=== PATIENT | male | born 1950 | race Caucasian/White ===

== ENCOUNTER 2020-04-18 18:44 | Emergency (ER) | payer MEDICARE, BC, SELFPAY ==
[2020-04-18] VITALS (7 sets, daily range): BP systolic 95–151; BP diastolic 70–97; PULSE 90–128; RESP 18–38; TEMP 36.4–36.6; O2SAT 80–100
--- NOTE | ~2020-04-18 | XR_ITS ---
EXAMINATION: XR chest 1V portable EXAM DATE: 04/18/2020 19:34 INDICATION: Shortness of breath. TECHNIQUE: Portable AP frontal chest x-ray was obtained. There is no prior study for comparison. FINDINGS: There is a moderate left-sided pneumothorax, pleural reflection has been indicated. I discu ssed this finding with Dr. Mukesh Langston MD at 04/18/2020 19:43 CDT. Evidence of underlying emphysema. There are some chronic linear right lung regions of scarring and pr obably apical bullous disease. Some left-sided atelectasis. No confluent consolidation. Pleural blunt ing, could be small pleural effusions or chronic. Cardiomediastinal silhouette is normal. There are m ild bony degenerative changes. IMPRESSION: Moderate-sized left pneumothorax. Reviewed, dictated and finalized at location A.
--- NOTE | ~2020-04-18 | XR_ITS ---
EXAMINATION: XR chest-chest tube insert/pos EXAM DATE: 04/18/2020 20:44 INDICATION: S/P Left Chest tube placement TECHNIQUE: Portable AP frontal chest x-ray was obtained. Comparison is made to prior examination from earlier same date. FINDINGS: There is been interval insertion of left-sided chest tube, with near resolution of the prev iously seen pneumothorax. Probable small amount of left-sided subpulmonic pneumothorax still identifi ed. Some apical bullous disease bilaterally. Lungs are hyperinflated and there is emphysema. No acute airspace disease. Cardiomediastinal silhouette is normal. There are no osseous abnormalities identif ied. IMPRESSION: Near resolution of left-sided pneumothorax following chest tube insertion. Reviewed, dictated and finalized at location A. IMPRESSION: Near resolution of left-sided pneumothorax following chest tube ins ertion.
--- NOTE | ~2020-04-18 | CT_ITS ---
EXAMINATION: CTA chest PE protocol EXAM DATE: 04/18/2020 22:38 INDICATION: Elevated DDimer, SOB, chest tube from pneumothorax TECHNIQUE: Spiral CTA of the chest (pulmonary arteries) was performed with 100 cc Omnipaque 350 intr avenous contrast injection. Images were acquired during the pulmonary arterial phase. Coronal maxi mum intensity projection 3D-reconstructions were created by the technologist on dedicated workstation . Axial, coronal and sagittal reformatted images were reviewed. The dose-length product (DLP) for t his examination was 175.96 mGy-cm. The exposure was tailored according to patient size (auto mA exp osure control), and iterative reconstruction (ASIR) was used as additional dose reduction technique. Correlation is made to chest x-ray same date. FINDINGS: There is a left-sided chest tube extending up along the anterior pleural reflection and the n downward along the anteromedial reflection. There is small anterobasal pneumothorax remaining, sign ificant interval reduction compared to presenting chest x-ray. There is biapical bullous disease and moderate to severe emphysema. There is mild bilateral bronchiectasis. Pulmonary arteries are well opacified and without intraluminal filling defects. There are his right upper lobe somewhat linear opacity measuring 1.3 x 0.7 cm with some punctate calcifications, appeara nce most consistent with scarring. Recommend 6 month follow-up chest x-ray. There is angular segmenta l atelectasis. There are no pleural or pericardial effusions. Tracheobronchial tree is patent. T here is no mediastinal, hilar or axillary lymphadenopathy. Heart normal in size. There is moderat e coronary arterial calcification, arterial sclerosis. Upper abdomen is unremarkable. There is tho racic spondylosis without osteoblastic or osteolytic lesions identified. IMPRESSION: 1. Small residual left anterobasal pneumothorax. Chest tube in position anteromedially. 2. Right upper lobe linear nodular opacity most likely scarring but 6 month follow-up chest CT recom mended. 3. Moderate to severe emphysema. Apical bullous disease. 4. Lingular segmental atelectasis. Reviewed, dictated and finalized at location G. IMPRESSION: 1. Small residual left anterobasal pneumothorax. Chest tube in position rhett medially. 2. Right upper lobe linear nodular opacity most likely scarring but 6 month fo llow-up chest CT recommended. 3. Moderate to severe emphysema. Apical bullous disease. 4. Lingular segmental atelectasis.
--- NOTE | 2020-04-18 18:55 | ECG_ITS ---
Measurements Intervals [place] Rate: 126 P: 51 [place]: 158 QRS: 108 QRSD: 86 T: 56 QT: 316 QTc: 458 Interpretive Statements SINUS TACHYCARDIA FREQUENT ATRIAL PREMATURE COMPLEXES RIGHT AXIS DEVIATION DELAYED PRECORDIAL R/S TRANSITION LOW QRS VOLTAGE IN PRECORDIAL LEADS BASELINE ARTIFACT- I, II, III, AVR, AVL, AVF, V1-V6 ABNORMAL ECG Electronically Signed On 04-19-2020 7:36:52 CDT by Nahun Barajas D.O.
[2020-04-18] MEDS: methylPREDNISolone SOD SUCC 125 MG VIAL IV PUSH (19:02)
--- NOTE | 2020-04-18 19:08 | ED.SOB ---
HPI - SOB/Dyspnea General Chief Complaint: Shortness of Breath/Dyspnea Stated Complaint: 69 YO male w/ known h/o COPD sec to tobaccoism here by AMB c/o 1 day h.o SOB. Denies fever. Time Seen by Provider: 04/18/20 18:55 Related Data Home Medications Medication Instructions Recorded Confirmed amlodipine 5 mg PO DAILY 04/18/20 04/18/20 budesonide-formoterol [Symbicort] 1 puff INHALATION BID 04/18/20 04/18/20 clonidine HCl 0.1 mg PO BID 04/18/20 04/18/20 lisinopril 10 mg PO DAILY 04/18/20 04/18/20 tiotropium bromide [Spiriva 1 puff INHALATION BID 04/18/20 04/18/20 Respimat] Allergies Allergy/AdvReac Type Severity Reaction Status Date / Time No Known Allergies Allergy Verified 04/18/20 21:03 Review of Systems Constitutional: Constitutional: Reports as per HPI and Reports no additional constitutional complaints Eyes: Eyes: Reports as per HPI and Reports no additional eye complaints ENT: Reports system reviewed and no additional complaints, except as documented and Reports as per HPI Cardiovascular: Cardiovascular: Reports as per HPI and Reports no additional cardiovascular complaints Respiratory: Respiratory: Reports dyspnea Gastrointestinal: Gastrointestinal: Reports as per HPI and Reports no additional gastrointestinal complaints Genitourinary: Genitourinary: Reports no additional male genitourinary complaints and Reports as per HPI Musculoskeletal: Musculoskeletal: Reports no additional musculoskeletal complaints and Reports as per HPI Integumentary/Breasts: Skin/Breast: Reports system reviewed and no additional complaints, except as docu and Reports as per HPI Neurologic: Reports system reviewed and no additional complaints, except as documented and Reports as per HPI Psychiatric: Psychiatric: Reports no additional psychiatric complaints and Reports as per HPI Endocrine: Endocrine: Reports no additional endocrine complaints and Reports as per HPI Hematologic/Lymphatic: Hematologic/Lymphatic: Reports no additional hematologic/lymphatic complaints and Reports as per HPI Allergic/Immunologic: Allergic/Immunologic: Reports no additional allergic/immunologic complaints and Reports as per HPI [facility] Past Medical History Medical History COPD (chronic obstructive pulmonary disease) HTN (hypertension) Exam Const: General: alert and ill appearing Orientation/consciousness: patient oriented x3 HENMT: Head: normal to inspection Eyes: Conjunctivae: conjunctivae normal Pupils: Equal, round and reactive pupils present Neck: Neck: normal visual inspection and no lymphadenopathy Chest: Chest palpation & inspection: normal inspection of the chest Resp: Effort & Inspection: labored Auscultation: clear to auscultation bilaterally and diminished lung sounds Cardio: Rate: regular rate Rhythm: regular rhythm GI: Inspection: non-distended GI Palp: Yes Soft to palpation, No Tenderness to palpation present (GI), No Guarding due to palpation present (GI) and No Rigid due to palpation Percussion: Yes normal to percussion Auscultation: normal bowel sounds : General: Yes no CVA tenderness Male General Exam: Yes normal external exam Testes: Testes normal Back/Spine/Pelvis: Back: no CVA tenderness Skin: General skin exam: normal color Neuro: General: patient oriented x3, moves all extremities, no meningeal signs, no focal motor deficits and CN's II-XI intact bilaterally Cranial nerves: Yes Nystagmus not present Speech: normal speech Extrem: General: normal to inspection Psych: Mental Status: mental status grossly normal Course Course Emergency Course: D/W Hospitalist Dr Ramirez at [facility] who accepts patient but [facility] no [facility] beds available. Called Sunny Olson/Xi Chambers (Hospitalist) who agrees with w/u and need for transfer. he accepts patient. Will call back w/ a Bed. Vital Signs Vital signs: Vital Signs
[2020-04-18 19:30] LABS: Device BIPAP; Modified Allen's Test Pass; Oxygen Content ABG 18.6 %vol (16.0-22.0); Oxygen Saturation ABG 93.3 % (95-97); Oxyhemoglobin 91.9 % (94-100); PCO2 ABG 43.7 mmHg (35-45); Site Drawn RIGHT RADIAL; Total Hemoglobin 14.4 g/dL; pH ABG 7.32 (7.35-7.45)
[2020-04-18 19:31] LABS: Basophils Absolute Auto 0.06 K/mm3 (0.00-0.10); Basophils Percent Auto 0.4 % (0.0-1.0); Eosinophils Absolute Auto 0.01 K/mm3 (0.02-0.50); Eosinophils Percent Auto 0.1 % (1.0-6.0); Hematocrit 44.7 % (37.0-46.0); Hemoglobin 14.1 g/dL (12.4-15.3); Immature Granulocyte Percent A 0.6 % (0.0-0.0); Lymphocytes Absolute Auto 0.94 K/mm3 (1.10-4.50); Lymphocytes Percent Auto 5.8 % (18.0-42.0); Mean Corpuscular HGB Conc 31.5 g/dL (32.0-36.0); Mean Corpuscular Hemoglobin 29.9 pg (27.0-31.0); Mean Corpuscular Volume 94.7 fL (78.0-102.0); Mean Platelet Volume 8.6 fl (8.7-11.0); Monocytes Absolute Auto 0.79 K/mm3 (0.10-0.90); Monocytes Percent Auto 4.8 % (2.0-11.0); Neutrophils Absolute Auto 14.4 K/mm3 (1.7-7.2); Neutrophils Percent Auto 88.3 % (50.0-70.0); Platelet Count Result 374 K/mm3 (150-420); Red Blood Count 4.72 M/mm3 (4.70-6.10); Red Cell Distribution Width 13.7 % (11.6-14.4); White Blood Count 16.3 K/mm3 (4.8-10.8)
[2020-04-18 19:46] LABS: Expiratory Pressure 6 cmH2O; Inspiratory Pressure 12 cmH2O
[2020-04-18 19:49] LABS: Partial Thromboplastin Time 33.5 SEC (22.3-31.6); Prothrombin Time 10.7 Seconds (9.64-11.0)
[2020-04-18 19:55] LABS: Alanine Aminotransferase 15 U/L (16-63); Albumin Level 3.5 g/dL (3.4-5.0); Alkaline Phosphatase 89 U/L (46-116); Anion Gap 10 mmol/L (8-16); Aspartate Amino Transferase 18 U/L (15-37); Bilirubin,Total 1.2 mg/dL (0.00-1.00); Blood Urea Nitrogen 30 mg/dL (7-18); Carbon Dioxide 25 mmol/L (21-32); Chloride 102 mmol/L (98-108); Estimated Glomerular Filt Rate 58; Glucose 178 mg/dL (70-99); Osmolality Calculated 294 mOsm/kg (285-295); Potassium 4.1 mmol/L (3.5-5.1); Sodium 137 mmol/L (136-145); Total Protein 7.5 g/dL (6.4-8.2)
[2020-04-18 19:56] LABS: Amphetamine Screen Urine Negative (Negative); Barbiturate Screen Urine Negative (Negative); Benzodiazepines Screen Urine Negative (Negative); Cannabinoid Screen Urine Negative (Negative); Cocaine Screen Urine Negative (Negative); Methadone Screen Urine Negative (Negative); Opiate Screen Urine Negative (Negative); Phencyclidine Screen Urine Negative (Negative)
[2020-04-18 20:01] LABS: Magnesium 2.1 mg/dL (1.8-2.4)
[2020-04-18 20:01] LABS: Troponin I 2.16 ng/mL (0.00-0.056)
[2020-04-18 20:02] LABS: BNP 343 pg/mL (0-100)
[2020-04-18 20:03] LABS: Influenza Control Valid (Valid)
--- NOTE | 2020-04-18 20:33 | PC.NURSE ---
CHEST TUBE PLACEMENT CONSENT SIGNED PER DR DALLAS - 24 FR THORACIC CATHETER PLACED WITH PLEURA VAC SET AT LOW BUBBLE - PT TOLERATED PROCEDURE WELL - SPOKE WITH MURRAY AND BLANCA(DAUGHTERS) TO DECIDE WHERE THEY WOULD LIKE THEIR DAD SENT TO. PT REMAINS ALERT AND STATES THAT HE DOES FEEL BETTER SINCE PROCEDURE.
--- NOTE | 2020-04-18 20:40 | PC.NURSE ---
[facility] CALLED FOR POSSIBLE TRANSFER - THEY CAN PLACE US ON A WAITING LIST BUT THEY ARE OUT OF [place]
--- NOTE | 2020-04-18 20:50 | PC.NURSE ---
[facility] CALLED FOR POSSIBLE TRANSFER - BLANCA [phone] (DAUGHTER) AGREEABLE TO TRANSFER
--- NOTE | 2020-04-18 21:51 | PC.NURSE ---
CALL PLACED TO [facility] FOR POSSIBLE TRANSPORT REQUESTED BY BLANCA
[2020-04-18] MEDS: SODIUM CHLORIDE 0.9% IV 1,000 ML 150 ML IV CONT (22:00)
--- NOTE | 2020-04-18 22:00 | PC.NURSE ---
DR GENTILE CALLED FROM [facility]
--- NOTE | 2020-04-18 22:03 | PC.NURSE ---
DR NARAYAN CALLS BACK FROM [facility]
--- NOTE | 2020-04-18 22:12 | PC.NURSE ---
[facility] NOT TAKING ANY COVID TEST PENDING PATIENTS AT THIS TIME
--- NOTE | 2020-04-18 22:15 | PC.NURSE ---
[facility] TO CALL HOSPITALIST AT THIS TIME
[2020-04-18 23:24] LABS: Lactic Acid Reflex 3.2 mmol/L (0.4-2.0)
[2020-04-18] MEDS: SODIUM CHLORIDE 0.9% IV 1,000 ML 999 ML IV CONT (23:30)
--- NOTE | 2020-04-19 00:25 | PC.NURSE ---
ambulance here, states their policy must have a nurse with a new chest tube so unable transfer until nurse can be arranged.
[2020-04-19 01:12] VITALS: BP 107/70; PULSE 91; RESP 18; TEMP 36.6; O2SAT 99
[2020-04-19 01:48] LABS: Reflex Lactic Acid Yes or No No Lactic Reflex
[2020-04-21 11:16] LABS: SARS-CoV-2 RNA PCR Negative
== END 2020-04-19 01:14 | disposition short-term general hospital (02) ==
PROVIDERS: Emergency Provider Family Medicine
DX: J44.1 Chronic obstructive pulmonary disease with (acute) exacerbation (principal); J93.11 Primary spontaneous pneumothorax; R79.9 Abnormal finding of blood chemistry, unspecified; I10 Essential (primary) hypertension; Z87.891 Personal history of nicotine dependence; Z20.828 Contact with and (suspected) exposure to other viral communicable diseases; Z79.899 Other long term (current) drug therapy
CPT/HCPCS: 32551; 36415; 36600; 71045; 71275; 80053; 80307; 82805; 83605; 83735; 83880; 84484; 85025; 85380; 85610; 85730; 87081; 87635; 87804; 87880; 93005; 94002; 96361; 96365; 96375; 99283; 99291; C9803; J2543; J2930; J7030; Q9965; U0003

== ENCOUNTER 2020-04-19 02:00 | Inpatient (IN) | payer MEDICARE, BC, SELFPAY ==
[2020-04-19] VITALS (18 sets, daily range): BP systolic 100–122; BP diastolic 82–99; PULSE 85–125; RESP 15–31; TEMP 36.4–37.7; O2SAT 93–100; BMI 15.4
--- NOTE | 2020-04-19 | ECHO_ITS ---
Patient Info Name: Gilmar Neff Age: 70 years : 1950 Gender: Male Ht: 68 in Wt: 101 lbs BSA: 1.46 m2 HR: 112 bpm BP: 118 / 91 mmHg Heart Rhythm: Sinus Rhythm Technical Quality: Good Exam Date: 04/19/2020 12:36 PM Exam Location: [facility] Pulmonary Exam Room: ICU7 Patient Status: Inpatient Admit Date: 04/19/2020 Staff Ordering Physician: Jonny Edwards MD Market Development Manager: Jenny Gordon RCS Attending Provider: Saran Chambers MD Exam Type: CA echo doppler color flow Study Info Indications - STEMI S/P CATH Complete two-dimensional, color flow and Doppler transthoracic echocardiogram is performed. Summary 1. Complete two-dimensional, color flow and Doppler transthoracic echocardiogram is performed. 2. The left ventricle has normal size and thickness. The mid and distal ventricle (all segments: inferior, septal, posterior, anterior and lateral) are akinetic as is the apex, in a Tako-Tsubo- like fashion. The base of the ventricle is hyperdynamic. Normal diastolic function. The measured ejection fraction is 23% by the Biplane method and visually it appears to be 20-25%. Global longitudinal strain is -3%, consistent with severe impairment of systolic function. 3. The right ventricle is hyperdynamic. 4. Left atrial chamber dimension is borderline enlarged. 5. There is mild tricuspid valve regurgitation. 6. Mild pulmonary hypertension, estimated pulmonary arterial systolic pressure is 44 mmHg. 7. Normal sinus rhythm. Left Ventricle Left ventricular chamber dimension is normal. Left ventricular systolic function is severely reduced, estimated at 20-25%. There is no increased left ventricular wall thickness. Left ventricular septal wall motion is normal. The left ventricular diastolic function is normal. Global longitudinal strain is severely elevated at 3 %. Right Ventricle Right ventricular chamber dimension is normal. Right ventricular systolic function is normal. Left Atria Left atrial chamber dimension is borderline enlarged. Right Atria Right atrial chamber dimension is normal. Aortic Valve The aortic valve is trileaflet. There is no aortic valve sclerosis. There is no aortic valve stenosis. There is no aortic valve regurgitation. Pulmonic Valve The pulmonic valve is normal. There is no pulmonic valve stenosis. There is trace pulmonic regurgitation. Mitral Valve The mitral valve has normal leaflets. There is no mitral valve stenosis. There is trace mitral valve regurgitation. Tricuspid Valve The tricuspid valve leaflets are normal. There is no significant tricuspid valve stenosis. There is mild tricuspid valve regurgitation. Mild pulmonary hypertension, estimated pulmonary arterial systolic pressure is 44 mmHg. Pericardium/Pleural The pericardium appears normal. There is no pericardial effusion. Inferior Vena Cava Normal inferior vena cava with >50% collapse upon inspiration consistent with Empty right atrial pressure, 10 mmHg. Aorta The aortic root size at the sinus of Valsalva is normal. The prox ascending aorta size is normal. Left Ventricular Outflow Tract Name Value Normal LVOT 2D LVOT Diameter 2.0 cm L
--- NOTE | ~2020-04-19 | XR_ITS ---
XR chest 1V portable DATE: 04/22/2020 13:09 INDICATION: Small left pneumothorax TECHNIQUE: Portable AP chest on 04/22/2020 at 1245 hours COMPARISON: 04/22/2020 portable AP chest at 0524 hours FINDINGS: There is bullous emphysema. No pneumothorax is evident. The left chest tube is unchanged in position. Normal heart size. Diffuse osteopenia. IMPRESSION: Left thoracostomy tube; no apparent pneumothorax Bullous emphysema Reviewed, dictated and finalized at location A.
--- NOTE | ~2020-04-19 | XR_ITS ---
EXAMINATION: XR chest 1V portable DATE: 04/20/2020 05:45 INDICATION: Respiratory failure and pneumothorax post chest tube placement TECHNIQUE: frontal view of the chest was obtained. COMPARISON: Chest radiograph dated 04/19/2020 FINDINGS: Severe apical predominant emphysema. A left-sided chest tube has been withdrawn by approximately 10 c m with distal tip now projecting over the aortic arch and proximal side port projecting over the cent ral left lung. No pneumothorax. Pulmonary vascular congestion with slight increase in interstitial pa ttern suggesting developing pulmonary edema. Architectural distortion with central spiculated opacity at the right upper lung zone for which six-month follow-up was recommended on prior CT report. The c ardiomediastinal silhouette is normal. IMPRESSION: 1. Left chest tube has been withdrawn approximately 10 cm remains in acceptable position. No pneumoth orax. 2. Severe emphysema. 3. Pulmonary vascular congestion with suggestion of developing pulmonary edema. 4. Spiculated right upper lobe nodule for which six-month follow-up chest CT was recommended. Reviewed, dictated and finalized at location A. IMPRESSION: 1. Left chest tube has been withdrawn approximately 10 cm remains in acceptable position. No pneumothorax. 2. Severe emphysema. 3. Pulmonary vascular congestion with suggestion of developing pulmonary edema. 4. Spiculated right upper lobe nodule for which six-month follow-up chest CT wa s recommended.
--- NOTE | ~2020-04-19 | XR_ITS ---
XR chest 1V portable DATE: 04/25/2020 05:49 INDICATION: Left pneumothorax TECHNIQUE: Portable AP chest on 04/25/2020 at 0539 hours COMPARISON: 04/24/2020 portable AP chest at 1610 hours FINDINGS: There is slight left apical pneumothorax. There is minimal subcutaneous emphysema of the le ft chest wall. Bullous emphysema is again noted. Normal heart size. Minimal infiltrate or atelectasis is suggested in the lower lung zones. IMPRESSION: Slight left apical pneumothorax Reviewed, dictated and finalized at location A.
--- NOTE | ~2020-04-19 | XR_ITS ---
EXAMINATION: XR chest 1V portable DATE: 04/24/2020 16:24 INDICATION: Hypoxia. Respiratory distress. Recent left pneumothorax. TECHNIQUE: frontal view of the chest was obtained. COMPARISON: Chest radiograph dated 04/24/2020 at 5:06 AM FINDINGS: Upper expansion of lungs with increased lucency and architectural distortion at the upper lung zones and bullous changes at the apices consistent with emphysema. No pneumothorax. Increased interstitial pattern in the bilateral mid and lower lung zones consistent with mild pulmonary edema. No pleural ef fusion. The cardiomediastinal silhouette is normal. Small amount of chest wall gas projecting over th e left axilla likely related to a recent prior chest tube. IMPRESSION: 1. Severe emphysema. No pneumothorax. 2. Increased interstitial pattern in the bilateral mid and lower lung zones consistent with mild emph ysema. Reviewed, dictated and finalized at location B. IMPRESSION: 1. Severe emphysema. No pneumothorax. 2. Increased interstitial pattern in the bilateral mid and lower lung zones con sistent with mild emphysema.
--- NOTE | ~2020-04-19 | US_ITS ---
EXAMINATION: US right upper quadrant DATE: 04/24/2020 11:14 INDICATION: Abnormal liver function tests. TECHNIQUE: Multiple grayscale and Doppler ultrasound images of the abdomen were obtained. COMPARISON: None FINDINGS: The visualized portions of the head, body, and tail of the pancreas are normal. The liver i s normal without focal lesion. No liver surface nodularity. There is normal flow in main portal vein. The gallbladder is normal in size. No gallstones or gallbladder wall thickening. There was no sonogr aphic Vilchis sign. The common duct is normal and measures 4 mm. IMPRESSION: 1. Normal right upper quadrant ultrasound. Reviewed, dictated and finalized at location A.
--- NOTE | ~2020-04-19 | XR_ITS ---
XR chest 1V portable DATE: 04/24/2020 05:32 INDICATION: Removal of left thoracostomy tube TECHNIQUE: Portable AP chest on 04/24/2020 at 0506 hours COMPARISON: 04/15/2020 portable AP chest at 1400 hours FINDINGS: There is interval removal of left thoracostomy tube. There is mild subcutaneous emphysema o f the left chest wall. Approximately 2 mm left apical pneumothorax is suggested. Bullous emphysema is again noted. No pulmonary consolidation or pleural effusion. Heart size is jacquie l. IMPRESSION: Removal of left chest tube; slight left apical pneumothorax and mild subcutaneous emphyse ma left chest wall Prominent bullous emphysema Reviewed, dictated and finalized at location A. IMPRESSION: Removal of left chest tube; slight left apical pneumothorax and mil d subcutaneous emphysema left chest wall Prominent bullous emphysema
--- NOTE | ~2020-04-19 | XR_ITS ---
XR chest 1V portable DATE: 04/21/2020 05:51 INDICATION: Respiratory failure. Pneumothorax. TECHNIQUE: Portable AP chest on 04/21/2020 at 0530 hours COMPARISON: 04/20/2020 portable AP chest at 0530 hours FINDINGS: Severe bilateral emphysema is noted with bullous change particularly at the apices. Left thoracostomy tube is unchanged in position. There is slight left apical pneumothorax is suggeste d. No active infiltrate or consolidation, pleural effusion or pulmonary vascular congestion or pneumotho rax is noted. Heart size is within normal range. No hilar or mediastinal enlargement. Diffuse osteopenia. IMPRESSION: Left thoracostomy tube; very slight left apical pneumothorax is suggested Bullous emphysema Reviewed, dictated and finalized at location A. IMPRESSION: Left thoracostomy tube; very slight left apical pneumothorax is sug gested Bullous emphysema
--- NOTE | ~2020-04-19 | XR_ITS ---
XR chest 1V portable DATE: 04/23/2020 08:08 INDICATION: Left pneumothorax TECHNIQUE: Portable AP chest, 2 views, on 04/23/2020 at 0758 hours COMPARISON: 04/22/2020 portable AP chest at 1245 hours FINDINGS: Left thoracostomy tube is again noted. No pneumothorax is evident. Bilateral hyperinflation consistent with COPD, including bullae in the upper lung zones. Normal heart size. No pulmonary consolidation is noted. IMPRESSION: Left thoracostomy tube; no apparent left pneumothorax Reviewed, dictated and finalized at location A.
--- NOTE | ~2020-04-19 | XR_ITS ---
EXAMINATION: XR chest 1V portable DATE: 04/23/2020 14:05 INDICATION: Left pneumothorax post clamping of a left chest tube. TECHNIQUE: frontal view of the chest was obtained. COMPARISON: Chest radiograph dated 04/23/2020 at 7:58 AM FINDINGS: Again seen is hyperexpansion of lungs with increased lucency and architectural distortion most promin ent at the upper lung zones consistent with severe emphysema. Left chest tube in unchanged position w ith small amount of adjacent chest wall gas. No pneumothorax. No focal airspace opacities, pulmonary edema or pleural effusion. The cardiomediastinal silhouette is normal. IMPRESSION: 1. Unchanged left chest tube. No pneumothorax. 2. Severe emphysema. Reviewed, dictated and finalized at location B.
--- NOTE | ~2020-04-19 | XR_ITS ---
EXAMINATION: XR chest 1V portable DATE: 04/19/2020 09:44 INDICATION: Left chest tube for pneumothorax TECHNIQUE: frontal view of the chest was obtained. COMPARISON: Chest radiograph dated 04/18/2020 FINDINGS: Hyperexpansion of lungs with increased lucency and architectural distortion consistent with severe em physema. No interval change in position of a left chest tube which projects across the left mid to up per lung with distal tip extending caudally along side the anterior mediastinum. No discernible resid ual pneumothorax. No pulmonary edema or pleural effusion. The cardiomediastinal silhouette is normal. IMPRESSION: 1. Unchanged left chest tube with no discernible residual left pneumothorax. 2. Severe emphysema. Reviewed, dictated and finalized at location A.
--- NOTE | ~2020-04-19 | XR_ITS ---
XR chest 1V portable DATE: 04/22/2020 05:41 INDICATION: Left pneumothorax. Respiratory failure. TECHNIQUE: Portable AP chest on 04/22/2020 at 0524 hours COMPARISON: 04/21/2020 portable AP chest at 0530 hours FINDINGS: Left thoracostomy tube is again noted. Probable small left apical pneumothorax is again sug gested. There is bilateral hyperinflation with bullous change involving the apices. Heart size appears within normal range. There is aortic ectasia and unfolding. Diffuse osteopenia. IMPRESSION: Probable small left apical pneumothorax Reviewed, dictated and finalized at location A.
--- NOTE | 2020-04-19 02:54 | ADMGEN ---
This patient, Gilmar Neff, was admitted to Intensive Care Unit-7 at 0150. Patient/family oriented to hospital policies and general routines including ID bracelet, bed and alarms, visiting hours, pain management, procedures, bathroom and other care routines, personal items, smoking policy, room service/diet, and visiting hours. Information on how to activate the Rapid Response Team has been discussed. Patient/Family are encouraged to report perceived risks to care and to ask questions if they do not understand what they are told or what they should do.
--- NOTE | 2020-04-19 03:36 | PM.IMHP ---
H&P: HPI History of Present Illness Date/Time: 04/19/20 03:36 Chief complaint: acute respiratory failure, PMX, Elev Trop Narrative: This is a 70 year old male with known COPD and hypertension who presented to [facility] with complaint of shortness of breath that started since he woke up yesterday. The patient denies any significant chest pain and states that his shortness of breath was not exertional or pleuritic in nature. He also denies any significant coughing,wheezing, fevers, or chills. The patient has an extensive tobacco history and currently is smoking a half a pack of cigarettes daily. He denies any previous history of coronary artery disease. He also denies any trauma. The patient was evaluated emergency room and found to have a spontaneous left pneumothorax on chest x-ray. The patient was placed on 4 L of oxygen which improved his saturations from the 80s up to above 95%. A left-sided chest tube was placed in the ER. Routine labs demonstrated an elevated troponin of 2.1. He was also swabbed for altamirano virus. The patient was transferred to our hospital for further care. On my encounter with the patient he denies any left-sided chest pain at this time. Review of Systems Review of Systems: All systems reviewed & are unremarkable except as noted in HPI and below PMFSH Past Medical History Medical History Acute systolic CHF (congestive heart failure) COPD (chronic obstructive pulmonary disease) (Unknown) HTN (hypertension) Right upper lobe pulmonary nodule Family History Family History Sibling Chronic obstructive pulmonary disease Social History Social History Smoking packs per day: 0.5 Smoking cigarettes per day: 10.0 Smoking status: Current every day smoker Tobacco type: cigarettes Alcohol intake: current Drinks per week: 7 Substance use: never Gender identity (if verbalized by the patient): Male Spiritual care concerns: No Comments Past surgical history is unremarkable. Meds Home Medications and Allergies Home Medications Medication Instructions Recorded Confirmed Type amlodipine 5 mg PO DAILY 04/18/20 04/19/20 History budesonide-formoterol [Symbicort] 1 puff INHALATION BID 04/18/20 04/19/20 History clonidine HCl 0.1 mg PO BID 04/18/20 04/19/20 History lisinopril 10 mg PO DAILY 04/18/20 04/19/20 History tiotropium bromide [Spiriva 1 puff INHALATION BID 04/18/20 04/19/20 History Respimat] Allergies Allergy/AdvReac Type Severity Reaction Status Date / Time No Known Allergies Allergy Verified 04/18/20 21:03 Vital Signs Vital Signs - 24 hr 04/19/20 02:09 04/19/20 03:17 Temperature 37.7 C H Pulse Rate 86 91 Respiratory Rate 25 H Blood Pressure 119/89 Pulse Oximetry 100 Exam Const: General: cooperative, healthy appearing, no acute distress, alert and awake Nutritional Appearance: well nourished Orientation/consciousness: patient oriented x3 HENMT: Head: normal to inspection General nose exam: Normal external nose present Face and sinus: normal facial exam Mouth: Yes Normal oral and palatal mucosa present and Yes oropharynx normal Eyes: Pupils: Equal, round and reactive pupils present EOM: EOMs intact bilaterally Neck: Neck: supple and no JVD Thyroid: thyroid normal Lymphatic: lymphadenopathy not noted Resp: Effort & Inspection: normal respiratory effort and other (left sided chest tube in place) Auscultation: clear to auscultation bilaterally Cardio: Rate: regular rate Rhythm: regular rhythm Heart sounds: no murmurs GI: Inspection: normal to inspection Auscultation: normal bowel sounds Skin: General skin exam: normal color and no rashes or lesions noted Neuro: General: patient oriented x3 Cranial nerves: Yes CN's II-XII intact bilaterally and Yes Equal, round and reacti
--- NOTE | 2020-04-19 03:39 | ECG_ITS ---
Measurements Intervals [place] Rate: 86 P: 78 [place]: 160 QRS: 63 QRSD: 78 T: 66 QT: 370 QTc: 445 Interpretive Statements SINUS RHYTHM LOW QRS VOLTAGE IN LIMB LEADS BORDERLINE R WAVE PROGRESSION, ANTERIOR LEADS ANTERLATERAL ST ELEVATION MYOCARDIAL INJURY- ACUTE BASELINE ARTIFACT- I, II ,III, AVL, V2, V4 ABNORMAL ECG Electronically Signed On 04-22-2020 12:08:10 CDT by Nahun Barajas D.O.
[2020-04-19 04:12] LABS: Basophils Percent Auto 0.1 % (0.2-1.2); Hemoglobin 13.8 g/dL (14.0-18.0); Immature Granulocyte Absolute 0.08 K/mm3 (0.00-0.031); Immature Granulocyte Percent A 0.6 % (0-0.5); Lymphocytes Absolute Auto 0.88 K/mm3 (0.9-3.2); Lymphocytes Percent Auto 6.4 % (18.3-44.2); Mean Corpuscular HGB Conc 32.1 g/dl (32-36); Mean Corpuscular Hemoglobin 30.1 pg (26-34); Mean Corpuscular Volume 93.9 fl (80-100); Mean Platelet Volume 8.7 fl (7.4-10.4); Monocytes Absolute Auto 0.4 K/mm3 (0.1-0.6); Monocytes Percent Auto 2.7 % (2.6-8.5); Neutrophils Absolute Auto 12.5 K/mm3 (1.3-6.7); Neutrophils Percent Auto 90.2 % (45.5-73.1); Platelet Count Result 302 k/mm3 (150-375); Red Blood Count 4.58 M/mm3 (4.6-6.20); Red Cell Distribution Width 13.8 % (11.5-14.5); White Blood Count 13.8 K/mm3 (4.5-10.0)
[2020-04-19] MEDS: ASPIRIN 325 MG TABLET PO (04:31)
[2020-04-19 04:45] LABS: Cholesterol 130 mg/dL (0-200); HDL Direct 57 mg/dL; Triglycerides 64 mg/dL (<150)
[2020-04-19 04:49] LABS: Anion Gap 13 mmol/L (8-16); Blood Urea Nitrogen 28 mg/dL (9-20); Calcium 8.8 mg/dL (8.4-10.2); Carbon Dioxide 20 mmol/L (22-30); Chloride 105 mmol/L (98-107); Estimated CRCL calculation 45 ml/min; Estimated Glomerular Filt Rate > 60; Glucose 109 mg/dL (75-110); Potassium 4.4 mmol/L (3.4-5.0); Sodium 138 mmol/L (137-145)
[2020-04-19 04:55] LABS: LDL Cholesterol Direct 63 mg/dL
--- NOTE | 2020-04-19 05:06 | ECG_ITS ---
Measurements Intervals [place] Rate: 86 P: 82 [place]: 144 QRS: 66 QRSD: 79 T: 74 QT: 386 QTc: 464 Interpretive Statements SINUS RHYTHM LOW QRS VOLTAGE IN LIMB LEADS BORDERLINE R WAVE PROGRESSION, ANTERIOR LEADS MINIMAL Q WAVES- INFERIOR LEADS ANTEROLATERAL ST ELEVATION MYOCARDIAL INJURY- ACUTE ABNORMAL ECG Electronically Signed On 04-22-2020 12:11:29 CDT by Nahun Barajas D.O.
[2020-04-19 05:26] LABS: INR 1.2
[2020-04-19 05:27] LABS: Partial Thromboplastin Time 43.4 SECONDS (22.3-36.8)
--- NOTE | 2020-04-19 06:37 | PC.NURSE ---
Upon physician review, STEMI alert via [facility] called at 0518 after EKG indicated STEMI. pathology laboratory director team transported patient to slab inspector at 0610.
--- NOTE | 2020-04-19 06:59 | PM.CNCAR ---
Assessment and Plan Additional Plan STEMI ant wall, s/p LHC with subtotal occlusion of LAD with ILIR 1 flow, likely culprit lesion, very trotious and calcfiied long lesion, s/p PTCA and restored ILIR 3 flow but not amenable for stent. will consider single vessel ABRAMS to LAD as best option vs high risk PCI. cont on ASA, Plavix, statin and BP control with amlodipine, ACEI and metoprolol, TTE. History of Present Illness History of Present Illness Consult date/time: 04/19/20 06:59 Consult reason: shortness of breath Reason For Visit: acute respiratory failure, PMX, Elev Trop Narrative: 70 patient with HX of COPD and HTN presented to outside hospital with acute SOB, and found to have pneumothorax and chest tube placed with improvement in his SOB. EKG was done and revealed concerning ST elevation in ant leads and trop was found to be significantly elevated. Patient also mentioned prior Hx of stroke and on blood thinner that he doesn't know name. Review of Systems Review of Systems: All systems reviewed & are unremarkable except as noted in HPI and below PMFSH Past Medical History Medical History COPD (chronic obstructive pulmonary disease) HTN (hypertension) Family History Family History Sibling Chronic obstructive pulmonary disease Social History Social History Smoking packs per day: 0.5 Smoking cigarettes per day: 10.0 Smoking status: Current every day smoker Tobacco type: cigarettes Alcohol intake: current Drinks per week: 7 Substance use: never Gender identity (if verbalized by the patient): Male Spiritual care concerns: No Meds Home Medications and Allergies Home Medications Medication Instructions Recorded Confirmed Type amlodipine 5 mg PO DAILY 04/18/20 04/19/20 History budesonide-formoterol [Symbicort] 1 puff INHALATION BID 04/18/20 04/19/20 History clonidine HCl 0.1 mg PO BID 04/18/20 04/19/20 History lisinopril 10 mg PO DAILY 04/18/20 04/19/20 History tiotropium bromide [Spiriva 1 puff INHALATION BID 10/23/20 10/24/20 History Respimat] Allergies Allergy/AdvReac Type Severity Reaction Status Date / Time No Known Allergies Allergy Verified 04/18/20 21:03 Vital Signs Vital Signs - 24 hr 04/19/20 02:09 04/19/20 03:17 04/19/20 04:00 Temperature 37.7 C H Pulse Rate 86 91 85 Respiratory Rate 25 H 20 Blood Pressure 119/89 118/91 H Pulse Oximetry 100 99 04/19/20 05:59 Temperature Pulse Rate 90 Respiratory Rate Blood Pressure Pulse Oximetry Exam Const: General: comfortable and no acute distress Other: Able to lie flat HENMT: General nose exam: Normal nares present and no epistaxis Mouth: Yes moist mucous membranes Eyes: Sclera: sclerae normal Pupils: Equal, round and reactive pupils present Neck: Neck: supple and no JVD Carotids: no bruits Chest: Chest palpation & inspection: normal inspection of the chest (left side chest tube) Resp: Auscultation: clear to auscultation bilaterally and lung sounds not diminished Other: No chest wall tenderness Cardio: Rate: regular rate Rhythm: regular rhythm Heart sounds: no gallops, no murmurs and no rubs GI: GI Palp: Yes Soft to palpation and No Tenderness to palpation present (GI) Auscultation: normal bowel sounds Skin: General skin exam: normal color, rashes and/or lesions noted and no erythema Other: Warm Neuro: Cranial nerves: Yes Equal, round and reactive pupils present Speech: normal speech Other: No obvious focal deficit or facial asymmetry Extrem: General: no edema Other: Normal capillary refills Intact distal pulses. Results Labs and Meds Result diagrams: 04/19/20 04:01 04/19/20 04:01 Lab results: Cardiac Enzymes 04/19/20 Range/Units 04:01 Troponin I 2.150 H* (0.000-0.034) ng/mL Co
--- NOTE | 2020-04-19 07:05 | WPDCARDPROC ---
Cardiac Cath Procedure Note Date of procedure:: 04/19/20 Performing physician:: Jonny Edwards MD Assessment and Plan Additional Plan INDICATION: 1. STEMI HISTORY Patient presented with acute sever SOB s/p chest tube placement, EKG showed STEMIa nd rising trop PROCEDURES 1. Coronary angiogram 2. LHC 3. 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 Access site prepped and draped in sterile fashion. Moderate sedation given with versed and fentanyl and tolerated well, see nurses note for doses Access obtained with modified Seldinger technique with no difficulty. Coronary angiogram was recorded using JL4 and JR4 catheter in different angels LHC was done with JR4 catheter HEMODYNAMIC FINDINGS Aorta: 100/70 LVEDP 18 ANGIOGRAPHIC FINDINGS 1. Left main: normal, free of obstructive disease, gives LAD and LCX 2. LAD: Long trortious vessel that wraps around apex. LAD gives one intermediate size diagonal. Mid LAD has long 90% occlusion/subtotal occlusion with ILIR II flow distally. 3. LCX: Non dominant tortious calcified vessel that gives one large OM with no obstructive disease 4. RCA: Dominant vessel gives rPDA. RCA is calcified tortious vessel and RCA and its branches free of obstructive disease PCI DETAILS Pre intervention Lesion: acute subtotal occlusion of mid LAD, culprit lesion of STEMI, class C, calcified, ILIR II Guide catheter: XB 3.5 Anticoagulation: Heparin to target ACT > 250 sec Antiplatelet therapy: ASA and Ticagrelor given Guide wire: samurai used to cross to distal vessel Balloon dilation was done with boiler washer 1.2 * 12 mm balloon at 12 DARWIN, then Emerge 2.0 * 15 and 2.5 * 15 mm balloon. because of tortuosity, calcification and length of lesion, no attempt was done for stent and will consider ABRAMS to LAD Post intervention: residual stenosis 40% and ILIR 3 flow established COMPLICATION: None Estimated blood loss: 30 ml patient tolerated procedure well, asymptomatic at end of procedure, awake, intact pulses and following commands CONCLUSION Acute subtotal occlusion of mid LAD Culprit lesion of STEMI S/P Primary PTCA with emerge 2.5 * 15 mm balloon and restored ILIR 3 flow RECOMMENDATION DAPT for at least one year Consult cardiac surgery for ABRAMS to LAD.
[2020-04-19 07:07] LABS: Activated Clotting Time 219 sec (74-137)
[2020-04-19] MEDS: ATORVASTATIN 40 MG TABLET 80 MG PO (09:08)
[2020-04-19] MEDS: CLOPIDOGREL BISULFATE 300 MG TABLET PO (09:08)
[2020-04-19] MEDS: SODIUM CHLORIDE 0.9% IV 1,000 ML 125 ML IV CONT (09:12)
--- NOTE | 2020-04-19 09:28 | ECG_ITS ---
Measurements Intervals Jackhorn Rate: 90 P: 80 MD: 165 QRS: 47 QRSD: 93 T: 72 QT: 381 QTc: 468 Interpretive Statements SINUS RHYTHM VENTRICULAR PREMATURE COMPLEX LOW QRS VOLTAGE IN LIMB LEADS BORDERLINE R WAVE PROGRESSION, ANTERIOR LEADS ST ELEVATION IN ANTEROLATERAL LEADS- CONSIDER ACUTE INJURY BASELINE ARTIFACT- I, II, III, AVR, AVL, AVF, V4-V6 ABNORMAL ECG Electronically Signed On 04-22-2020 12:09:10 CDT by Nahun Barajas D.O.
[2020-04-19] MEDS: lisinopriL 10 MG TABLET PO (09:35)
[2020-04-19] MEDS: amLODIPine BESYLATE 5 MG TABLET PO (09:35)
[2020-04-19] MEDS: ASPIRIN 81 MG ENTERIC TABLET PO (09:35)
--- NOTE | 2020-04-19 12:17 | WPDCNINT ---
Assessment and Plan Assessment and plan (1) STEMI (ST elevation myocardial infarction): Qualifiers: Involved coronary artery: unspecified coronary artery Qualified Code(s): I21.3 - ST elevation (STEMI) myocardial infarction of unspecified site Code(s): I21.3 - ST elevation (STEMI) myocardial infarction of unspecified site Status: Acute Assessment and Plan: She was evaluated by cardiology and was taken to cardiac cardiac cath technician. LAD was found to be occluded. PTSA Was performed but stent could not be placed because of the vessel being very tortuous and calcified. Continue to trend troponin and serial EKG. Continue to monitor on telemetry. Continue dual antiplatelet therapy with aspirin and Plavix. Continue statin. Resume her home regimen of amlodipine and lisinopril. Will add low-dose metoprolol. Will hold off her clonidine. (2) Tobacco dependence: Code(s): F17.200 - Nicotine dependence, unspecified, uncomplicated Status: Chronic Assessment and Plan: Encouraged her to stop smoking. (3) Suspected 2019 novel coronavirus infection: Code(s): Z20.828 - Contact with and (suspected) exposure to other viral communicable diseases Status: Acute Assessment and Plan: Follow COVID testing sent from [facility]. She will remain in contact and droplet precaution until she is ruled out. I have very low suspicion for COVID-19 infection. (4) Primary spontaneous pneumothorax: Code(s): J93.11 - Primary spontaneous pneumothorax Status: Acute Assessment and Plan: Continue chest tube with intermittent wall suction Chest tube management as per surgery service which has been consulted. Chest x-ray on the daily basis. (5) COPD (chronic obstructive pulmonary disease): Code(s): J44.9 - Chronic obstructive pulmonary disease, unspecified Status: Acute Assessment and Plan: Continue bronchodilator with levo albuterol and Atrovent nebulization. I will continue his Symbicort and Spiriva. Additional Plan DVT prophylaxis with subcu heparin GI prophylaxis not indicated cardiac diet critical care time spent 34 minutes Due to a high probability of clinically significant, life threatening deterioration, the patient required my highest level of preparedness to intervene emergently and I personally spent this critical care time directly and personally managing the patient. This critical care time included obtaining a history; examining the patient; pulse oximetry; ordering and review of studies; arranging urgent treatment with development of a management plan; evaluation of patient's response to treatment; frequent reassessment; and discussions with other providers. It was exclusive of separately billable procedures and treating other patients and teaching time. Please see Assessment and Plan section and the rest of the note for further information on patient assessment and treatment. Occup Therapist Consult Note Consult date: 04/19/20 Time Seen: 10:35 HPI: Gilmar Neff is a 70 year old male COPD, significant smoking history and hypertension who presented to [facility] with complaints of shortness of breath. She was evaluated in the emergency department and a spontaneous left-sided a pneumothorax was encountered. A chest tube was placed. he kg there was suggestive of possible ST-elevation ID. She did have some significant troponin leak. She was transferred over here and was evaluated by corrections sergeant who took her to cardiac cardiac cath technician. She was found to have occlusion of LAD with PTSA done. Stent was not placed because of the vessel being very tortuous and calcified. She was admitted to the ICU for further care. She denied have any significant symptoms of chest pain or shortness of breath to myself. She denied have any cough fever chills. She has not been exposed to any patient with confirmed or suspected COVID19
[2020-04-19] MEDS: HYDROcodone/acetaminophen (*CRX) 5-325 MG TABLET 1 TAB PO (15:19)
--- NOTE | 2020-04-19 16:13 | PM.IMPN ---
Progress Note: A&P Assessment and Plan (1) Acute respiratory failure: Qualifiers: Respiratory failure complication: unspecified whether with hypoxia or hypercapnia Qualified Code(s): J96.00 - Acute respiratory failure, unspecified whether with hypoxia or hypercapnia Code(s): J96.00 - Acute respiratory failure, unspecified whether with hypoxia or hypercapnia Status: Acute Assessment and Plan: Appears to be secondary to acute pneumothorax. Continue oxygen supplementation and wean off as tolerated. Continue chest tube for pneumothorax and continue general surgery recommendations. To place to water suction today (2) Primary spontaneous pneumothorax: Code(s): J93.11 - Primary spontaneous pneumothorax Status: Acute Assessment and Plan: Likely related COPD secondary to chronic tobacco abuse. Chest tube is in place. General Surgery to manage the patient's pneumothorax. (3) STEMI (ST elevation myocardial infarction): Qualifiers: Involved coronary artery: unspecified coronary artery Qualified Code(s): I21.3 - ST elevation (STEMI) myocardial infarction of unspecified site Code(s): I21.3 - ST elevation (STEMI) myocardial infarction of unspecified site Status: Acute Assessment and Plan: EKG demonstrates ST segment elevation inferior/lateral leads. ASA given. We will anticoagulate w/ IV heparin. Trend troponin. Cardiology the patient to laboratory animal facility supervisor and found long tortuous subtotally occluded LAD. Lesion was angioplastied but not stented due to tortuosity. Beta-maryann, dual platelet therapy, VIK-inhibitor, and statin (4) COPD exacerbation: Code(s): J44.1 - Chronic obstructive pulmonary disease with (acute) exacerbation Status: Acute Assessment and Plan: Xopenex bronchodilator. Continue oxygen supplementation. (5) HTN (hypertension): Qualifiers: Hypertension type: unspecified Qualified Code(s): I10 - Essential (primary) hypertension Code(s): I10 - Essential (primary) hypertension Status: Chronic Assessment and Plan: Monitor blood pressure. Add beta-maryann and continue to hold clonidine (6) Suspected 2019 novel coronavirus infection: Code(s): Z20.828 - Contact with and (suspected) exposure to other viral communicable diseases Status: Acute Assessment and Plan: Patient has been swabbed for COVID-19. Continue droplet isolation. Supportive care. (7) Tobacco dependence: Code(s): F17.200 - Nicotine dependence, unspecified, uncomplicated Status: Chronic Assessment and Plan: Dr. Castle counseled the patient regarding tobacco cessation for 4 minutes. He does not desire a nicotine patch. Subjective Date/time seen: 04/19/20 16:13 Interval history: Date of visit 04/19. 70-year-old male with COPD and hypertension presented to [facility] with increasing shortness of breath found to have a spontaneous left pneumothorax. Chest tube was placed and troponin was elevated to and transferred here for evaluation. EKG shows some ST elevation inferior and laterally and patient was taken to laboratory animal facility supervisor where a long tortuous subtotal occlusion of the LAD was found and angioplasty. Presently has no complaints shortness of breath or chest pain Exam Narrative: Exam Narrative: Blood pressure 110/90 pulse is 92 saturating 97% on room air afebrile Pupils equal reactive light sclera anicteric Lungs clear chest tube of left anterior chest wall CV regular rate rhythm Abdomen soft nontender Extremities without edema distal pulses are 2+ Neuro alert no focal deficits Objective Data Vital Signs Vital Signs: Vital Signs - 24 hr 04/19/20 02:09 04/19/20 03:17 04/19/20 04:00 Temperature 37.7 C H Pulse Rate 86 91 85 Respiratory Rate 25 H 20 Blood Pressure 119/89 118/91 H Pulse Oximetry 100 99 04/19/20 05:59 04/19/20 07:18 04/19/20 07:48 Temperature 37.2 C Pulse Rate 90 90 90 R
--- NOTE | 2020-04-19 16:47 | PM.CNGS ---
Assessment and Plan Assessment and plan (1) Primary spontaneous pneumothorax: Onset Date: ~04/19/20 Code(s): J93.11 - Primary spontaneous pneumothorax Status: Acute Assessment and Plan: this was the main reason further consultation to surgery. We will follow him for his chest tube. Because the ways chest tube was inserted and seems to be too far in [place] removed it detention so there is still 12 cm at the skin within the patient. Think the chest x-ray will be better tomorrow. He has good breath sounds on both sides this time. He does have chest pain and he feels like he is breathing okay. Will repeat chest x-ray in leave his chest tube to water seal since there is no air leak at this time. Repeat chest x-ray in the morning on water seal. (2) STEMI (ST elevation myocardial infarction): Qualifiers: Involved coronary artery: unspecified coronary artery Qualified Code(s): I21.3 - ST elevation (STEMI) myocardial infarction of unspecified site Code(s): I21.3 - ST elevation (STEMI) myocardial infarction of unspecified site Status: Acute (3) Tobacco dependence: Code(s): F17.200 - Nicotine dependence, unspecified, uncomplicated Status: Chronic (4) COPD exacerbation: Code(s): J44.1 - Chronic obstructive pulmonary disease with (acute) exacerbation Status: Acute (5) HTN (hypertension): Qualifiers: Hypertension type: unspecified Qualified Code(s): I10 - Essential (primary) hypertension Code(s): I10 - Essential (primary) hypertension Status: Chronic (6) Elevated troponin: Code(s): R77.8 - Other specified abnormalities of plasma proteins Status: Acute History of Present Illness Consult details Consult date: 04/19/20 Reason for consult: other ( Management of chest tube and left pneumothorax) Requesting physician: Saran Chambers MD Narrative: Rosy is a 70-year-old white male with COPD and hypertension who presented to an [facility] ([facility]) with increasing shortness of breath and was found to have a spontaneous left pneumothorax. denies any recent falls or chest injury. He has not been working on regular basis. 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 A left sided Chest tube was placed and hsi serumtroponin was also found to be elevated and so he was transferred here for further evaluation. EKG shows some ST elevation inferior and laterally and patient was taken to label drier where a long tortuous subtotal occlusion of the LAD was found and angioplasty. Presently has no complaints shortness of breath or chest pain. Reviewing the patient's chest x-ray today appears the chest tube is going in and somewhat kinked and then going back down along the mediastinum. Therefore I decided to pull it back some today. This was accomplished by cutting 1 of the 2 stitches holding it and then taping at nicely to him so that would come further out. Patient tolerated the maneuver without difficulty. The pneumothorax a left has completely resolved with the chest tube placement on today's chest x-ray. Review of Systems Constitutional: Constitutional: Reports as per HPI and Denies headache(s) Eyes: Eyes: Denies loss of vision and Denies eye pain ENT: Reports Normal hearing present, Denies change in voice, Denies dizziness and Denies headache(s) Cardiovascular: Cardiovascular: Denies chest pain and Denies dyspnea Respiratory: Respiratory: Denies dyspnea and Denies wheezing Comments: At the most patient was a 2 pack-a-day smoker when he was young. He cut back on his smoking about 5 or 6 years ago. When he quit he was smoking about half pack a day. Genitourinary: Comments: patient has a Ji catheter in place with good urine output. Musculoskeletal: Musculoskeletal: Denies back pain and Denies arthralgias Integumentary/Breasts: Comments: Well tanned. Stay patient states he masses around outside a lot. Neurologic: Reports Normal hearing
[2020-04-19] MEDS: METOPROLOL TARTRATE INJ 5 MG/5 ML VIAL IV PUSH (19:27)
[2020-04-19] MEDS: METOPROLOL TARTRATE 25 MG TABLET PO (21:14)
[2020-04-20] VITALS (21 sets, daily range): BP systolic 105–117; BP diastolic 77–99; PULSE 94–112; RESP 24–48; TEMP 36.2–36.6; O2SAT 93–100
[2020-04-20 05:28] LABS: Alveolar/Arterial O2 Gradient 58.6 mmHg; Base Excess ABG -4.5 mEq/l (+/-2.0); Carboxyhemoglobin 0.3 % THb (0-2.0); Device ROOM AIR; Fractional Inspired Oxygen 21 %; HCO3 ABG 18.6 mEq/l (22.0-26.0); Methemoglobin ABG 0.3 %THb (0-1.5); Oxygen Content ABG 17.4 %vol (16.0-22.0); Oxyhemoglobin 86.9 % THb (90.0-100.0); PCO2 ABG 29.6 mmHg (35.0-45.0); PO2 ABG 55.7 mmHg (80.0-100.0); PO2 FiO2 Ratio Arterial Blood 2.65 %; Reduced Hemoglobin 12.5 %THb (0-5.0); Site Drawn RIGHT BRACHIAL; Total Hemoglobin 14.3 g/dL (12.0-18.0); pH ABG 7.417 (7.350-7.450)
[2020-04-20 05:46] LABS: Hemoglobin 13.1 g/dL (14.0-18.0); Mean Corpuscular HGB Conc 33.6 g/dl (32-36); Mean Corpuscular Hemoglobin 30.3 pg (26-34); Mean Corpuscular Volume 90.3 fl (80-100); Platelet Count Result 335 k/mm3 (150-375); Red Blood Count 4.32 M/mm3 (4.6-6.20); Red Cell Distribution Width 13.8 % (11.5-14.5); White Blood Count 20.9 K/mm3 (4.5-10.0)
[2020-04-20 05:59] LABS: Anion Gap 11 mmol/L (8-16); Blood Urea Nitrogen 52 mg/dL (9-20); Carbon Dioxide 20 mmol/L (22-30); Chloride 109 mmol/L (98-107); Estimated CRCL calculation 183 ml/min; Estimated Glomerular Filt Rate 60; Glucose 134 mg/dL (75-110); Potassium 4.5 mmol/L (3.4-5.0); Sodium 140 mmol/L (137-145)
--- NOTE | 2020-04-20 06:58 | PC.NURSE ---
Shift Report: Pt started shift as alert and oriented, as night went on pt became more tachypneic and impulsive, pulling tubes and wires off. Denied feeling SOB or uncomfortable, Pt attempted to get out of bed multiple times. Chest tube checked each time and intact. Last time pt tried to get out of bed, Chest tube still intact, but noticing some serosanguineous drainage seeping through dressing. Pt reoriented multiple times. Dr. Chambers notified and ABG ordered. Pt was not placed to water seal per MD to nurse communication. Pt was tachypneic throughout the night in 40s, and with increased confusion, RN did not feel that the patient could tolerate it at this time.
[2020-04-20] MEDS: SPIRONOLACTONE 25 MG TABLET PO (07:52)
[2020-04-20] MEDS: CLOPIDOGREL BISULFATE 75 MG TABLET PO (07:52)
[2020-04-20] MEDS: ATORVASTATIN 40 MG TABLET 80 MG PO (07:53)
[2020-04-20] MEDS: lisinopriL 10 MG TABLET PO (07:53)
[2020-04-20] MEDS: METOPROLOL TARTRATE 25 MG TABLET PO (07:53)
[2020-04-20] MEDS: ASPIRIN 81 MG ENTERIC TABLET PO (07:53)
[2020-04-20] MEDS: LORazepam INJ (*CRX) 2 MG/ML VIAL 0.5 MG IV PUSH ×2 (08:37→08:56)
[2020-04-20] MEDS: THIAMINE HCL 200 MG/2 ML VIAL 100 MG IV PUSH (08:55)
[2020-04-20] MEDS: FUROSEMIDE INJ 40 MG/4 ML VIAL 20 MG IV PUSH ×2 (09:10→15:03)
[2020-04-20] MEDS: methylPREDNISolone SOD SUCC 40 MG VIAL IV PUSH ×2 (09:11→20:59)
[2020-04-20 11:05] LABS: Alveolar/Arterial O2 Gradient 95.2 mmHg; Base Excess ABG -3.6 mEq/l (+/-2.0); Device NASAL CANNULA; Fractional Inspired Oxygen 28 %; HCO3 ABG 19.3 mEq/l (22.0-26.0); Oxygen Content ABG 18.5 %vol (16.0-22.0); Oxygen Saturation ABG 94.8 % (95.0-100.0); Oxyhemoglobin 92.5 % THb (90.0-100.0); PCO2 ABG 29.2 mmHg (35.0-45.0); Site Drawn LEFT BRACHIAL; Total Hemoglobin 14.2 g/dL (12.0-18.0); pH ABG 7.437 (7.350-7.450)
--- NOTE | 2020-04-20 11:58 | PM.PNGS ---
Progress Note: A&P Assessment and Plan (1) Pneumothorax on left: Onset Date: ~07/19/19 Code(s): J93.9 - Pneumothorax, unspecified Status: Acute Assessment and Plan: Patient has chest tube in place. It was withdrawn some yesterday because it was relief RN. Looks good on chest x-ray today and there is no pneumothorax. Patient however seems to be undergoing some withdrawals from possible alcohol she use/abuse. Therefore, after discussion with his stereoplotter operator will wait at least another day before considering removal of the chest tube. There is some chance patient may end up needing BiPAP or intubation. (2) Tobacco dependence: Code(s): F17.200 - Nicotine dependence, unspecified, uncomplicated Status: Chronic (3) COPD (chronic obstructive pulmonary disease): Onset Date: Unknown Code(s): J44.9 - Chronic obstructive pulmonary disease, unspecified Status: Acute Assessment and Plan: Dental Chairside Assistant indicates patient has now been started on some steroids for his wheezing and extubation of COPD. Additional Plan Discussed with stereoplotter operator. Because the patient seems to be going through some withdrawals and is not mentally with it at the moment. Will leave the chest tube to water seal in Pleur-Evac. Will repeat chest x-ray tomorrow and if patient doing well may consider removal of chest tube tomorrow. Time Spent With Patient Time with patient: less than 15 minutes Subjective Subjective Date/Time Seen: 04/20/20 11:58 Patient seen in ICU bed 7. He is less responsive today. Denies shortness of breath at this time. Review of Systems Review of Systems: ROS unobtainable: Yes unobtainable due to medical condition and unobtainable due to mental status Exam Const: General: anxious Nutritional Appearance: underweight Orientation/consciousness: patient oriented x3 Limitations: altered mental status Other: may be going through some withdrawal from alcohol use/abuse. HENMT: Mouth: Yes moist mucous membranes Neck: Neck: normal visual inspection Chest: Chest palpation & inspection: normal inspection of the chest Other: I re-examined area of chest tube it seems to be nicely secured with dressing and tape. There is no bubbling across with deep breath or cough. (No air leak). Resp: Effort & Inspection: normal respiratory effort Auscultation: wheezes ( mild bilateral expiratory wheezing.) Cardio: Jugular venous distension: no JVD Rate: regular rate and tachycardic Rhythm: regular rhythm GI: Inspection: normal to inspection GI Palp: No abdominal tenderness and No Hernia present Auscultation: normal bowel sounds Rectal Exam: deferred Urinary Catheter: Urinary Catheter: urine clear Neuro: General: moves all extremities Extrem: General: normal exam except as noted, no clubbing, cyanosis or edema and no calf tenderness Psych: Appearance: disheveled Mental Status: other ( patient only wakes up with stimulation and occasionally answersyes/no. ) Speech and movement: Normal speech and movement present Affect: normal affect Thought content: Yes Normal thought content present and Yes Hallucination(s) present Insight: Limited insight present (Psych) Judgement: Limited judgement present (Psych) Objective Data Vital Signs Vital Signs: Vital Signs - 24 hr 04/19/20 12:00 04/19/20 14:00 04/19/20 16:00 Temperature 36.6 C 36.5 C Pulse Rate 99 124 H 124 H Respiratory Rate 25 H 25 H 19 Blood Pressure 108/93 H 108/96 H 119/96 H Pulse Oximetry 94 93 93 04/19/20 18:00 04/19/20 19:27 04/19/20 20:00 Temperature 36.4 C Pulse Rate 118 H 125 H 99 Respiratory Rate 21 H 25 H Blood Pressure 116/92 H 100/82 Pulse Oximetry 96 94 04/19/20 21:14 04/19/20 22:00 04/20/20 00:00 Temperature 36.6 C Pulse Rate 104 H 101 H 102 H Respiratory Rate 31 H 35 H Blood Pressure 106/89 105/77 Pulse Oximetry 96 95 04/20/20 02:00 04/20/20 04:00 04/20/20 06:00 Temperature 3
--- NOTE | 2020-04-20 12:20 | ECG_ITS ---
Measurements Intervals [place] Rate: 109 P: 75 [place]: 177 QRS: 93 QRSD: 78 T: 180 QT: 356 QTc: 480 Interpretive Statements SINUS TACHYCARDIA ATRIAL PREMATURE COMPLEXES RIGHT AXIS DEVIATION LOW QRS VOLTAGE IN LIMB LEADS CANNOT RULE OUT SEPTAL INFARCT, AGE INDETERMINATE ST-T WAVE ABNORMALITY IN ANTEROLATERAL LEADS- CONSIDER ISCHEMIA BASELINE ARTIFACT- I, II, III, AVR, AVL, AVF, V1-V6 ABNORMAL ECG Electronically Signed On 04-22-2020 12:09:24 CDT by Nahun Barajas D.O.
--- NOTE | 2020-04-20 13:19 | PM.PNCARD ---
Progress Note: A&P Assessment and Plan (1) STEMI (ST elevation myocardial infarction): Qualifiers: Involved coronary artery: unspecified coronary artery Qualified Code(s): I21.3 - ST elevation (STEMI) myocardial infarction of unspecified site Code(s): I21.3 - ST elevation (STEMI) myocardial infarction of unspecified site Status: Acute Assessment and Plan: patient suffered an acute [place] Tuesday morning, atypical presentation. Mid Left anterior descending angioplasty with resultant good flow, but the LAD could not be easily stented. Plan for eventual ABRAMS to the Left anterior descending although stenting is still an option. Continue aspirin, Plavix, statin. (2) Acute systolic CHF (congestive heart failure): Code(s): I50.21 - Acute systolic (congestive) heart failure Status: Acute Assessment and Plan: Has developed acute CHF, not surprising in view of the severe left ventricular dysfunction and ischemic cardiomyopathy, EF 20-25%. Hopefully most of this will be stunned myocardium since the troponin elevation was modest and he is not Q'd out extensively laterally on his EKG. Repeat EKG ordered for today. Continue supportive care. Will continue metoprolol, lisinopril, and I added spironolactone yesterday. DC amlodipine to give us room to work with his blood pressure. Continue diuresis although unfortunately his BUN has climbed, probably from poor cardiac output. (3) COPD (chronic obstructive pulmonary disease): Onset Date: Unknown Code(s): J44.9 - Chronic obstructive pulmonary disease, unspecified Status: Acute Assessment and Plan: Patient has severe COPD with blebs. (4) Pneumothorax on left: Onset Date: ~07/19/19 Code(s): J93.9 - Pneumothorax, unspecified Status: Acute Assessment and Plan: Spontaneous pneumo, status post chest tube (5) Confusion: Code(s): R41.0 - Disorientation, unspecified Status: Acute Assessment and Plan: possible alcohol withdrawal. (6) Right upper lobe pulmonary nodule: Code(s): R91.1 - Solitary pulmonary nodule Status: Acute Assessment and Plan: Spiculated right upper lobe nodule noted on chest x-ray which will need to be evaluated at a later date Subjective Date/time seen: 04/20/20 13:19 Follow-up for acute [place] new line patient had an atypical presentation, presenting with a pneumothorax at [facility] and receiving a chest tube, then transferred to [facility]. Though he had no c/o chest discomfort, His EKG showed some atypical anterolateral ST elevation and his troponin was 2 so he was taken to the maintenance shop laborer early Tuesday morning. It is subtotally occluded mid Left anterior descending which Dr. Edwards angioplastied but the vessel was tortuous and calcified and was not amenable to stent. Pt had ILIR grade 3 flow at the completion of the procedure and the recommendation was to eventually have a ABRAMS to the Left anterior descending as the best option. Echo shows severe left ventricular dysfunction with akinesis of the distal 2/3 of the ventricle (the Left anterior descending was a wrap-around vessel supplying the distal inferior wall ). EF 20-25%. Date of service: 04/20/2020 . The chest tube was adjusted yesterday by Dr. Doss. Overnight the patient became restless and tachypneic as well as confused and hallucinating. There was some concern there may be alcohol withdrawal, although his daughter denies any history of heavy drinking. He settled down after some Ativan. His oxygen requirements have gone up and he is now on 4 L. He also has gone into some congestive heart failure and was given some Lasix this morning. he has
[2020-04-20] MEDS: IPRATROPIUM BR 0.02% INH SOLN 0.5 MG/2.5 ML VIAL INHALATION ×2 (14:44→20:32)
[2020-04-20] MEDS: ALBUTEROL SULFATE NEB 2.5 MG/0.5 ML INH INHALATION ×2 (14:45→20:32)
--- NOTE | 2020-04-20 14:55 | PM.IMPN ---
Progress Note: A&P Assessment and Plan (1) Acute respiratory failure: Qualifiers: Respiratory failure complication: unspecified whether with hypoxia or hypercapnia Qualified Code(s): J96.00 - Acute respiratory failure, unspecified whether with hypoxia or hypercapnia Code(s): J96.00 - Acute respiratory failure, unspecified whether with hypoxia or hypercapnia Status: Acute Assessment and Plan: Appears to be secondary to acute pneumothorax and severe COPD. Continue oxygen supplementation and wean off as tolerated. Continue chest tube for pneumothorax and continue general surgery recommendations. (2) Primary spontaneous pneumothorax: Onset Date: ~04/19/20 Code(s): J93.11 - Primary spontaneous pneumothorax Status: Inactive Assessment and Plan: Likely related COPD secondary to chronic tobacco abuse. Chest tube is in place. General Surgery to manage the patient's pneumothorax. (3) STEMI (ST elevation myocardial infarction): Qualifiers: Involved coronary artery: unspecified coronary artery Qualified Code(s): I21.3 - ST elevation (STEMI) myocardial infarction of unspecified site Code(s): I21.3 - ST elevation (STEMI) myocardial infarction of unspecified site Status: Acute Assessment and Plan: EKG demonstrates ST segment elevation inferior/lateral leads.. Cardiology took the patient to laborer high density press and found long tortuous subtotally occluded LAD. Lesion was angioplastied but not stented due to tortuosity. Beta-maryann, dual platelet therapy, VIK-inhibitor, and statin (4) COPD exacerbation: Code(s): J44.1 - Chronic obstructive pulmonary disease with (acute) exacerbation Status: Inactive Assessment and Plan: Xopenex bronchodilator. Continue oxygen supplementation. steroids added today 04/20 (5) HTN (hypertension): Qualifiers: Hypertension type: unspecified Qualified Code(s): I10 - Essential (primary) hypertension Code(s): I10 - Essential (primary) hypertension Status: Chronic Assessment and Plan: Monitor blood pressure. Added beta-maryann 04/19 and continue to hold clonidine (6) Suspected 2019 novel coronavirus infection: Code(s): Z20.828 - Contact with and (suspected) exposure to other viral communicable diseases Status: Acute Assessment and Plan: Patient has been swabbed for COVID-19. Continue droplet isolation. Supportive care. (7) Tobacco dependence: Code(s): F17.200 - Nicotine dependence, unspecified, uncomplicated Status: Chronic Assessment and Plan: Dr. Castle counseled the patient regarding tobacco cessation for 4 minutes. He does not desire a nicotine patch. (8) Acute systolic CHF (congestive heart failure): Code(s): I50.21 - Acute systolic (congestive) heart failure Status: Acute Assessment and Plan: Ejection fraction only 25% with echo and catheterization. Lungs appear clear but with extent of his COPD may not auscultate many findings. Chest x-ray may be some pulmonary vascular redistribution but looks more like difference in technique with lesser penetration on today's film. Lasix has been given and BUN and creatinine are already higher, if more failure would expect BUN and creatinine to fall 04/21 with addition of the diuretic continue beta-maryann and VIK-inhibitor with the spironolactone Subjective Date/time seen: 04/20/20 14:55 Interval history: Date of visit 04/20. 70-year-old male with COPD and hypertension presented to [facility] with increasing shortness of breath found to have a spontaneous left pneumothorax. Chest tube was placed and troponin was elevated too and transferred here for evaluation. EKG showed some ST elevation inferior and laterally and patient was taken to laborer high density press where a long tortuous subtotal occlusion of the LAD was found and angioplasty. Presently has no complaints shortness of breath or chest pain
[2020-04-21] VITALS (29 sets, daily range): BP systolic 88–103; BP diastolic 59–87; PULSE 85–119; RESP 18–30; TEMP 36.6–37.1; O2SAT 92–100; BMI 16.4
[2020-04-21] MEDS: IPRATROPIUM BR 0.02% INH SOLN 0.5 MG/2.5 ML VIAL INHALATION ×4 (02:04→20:23)
[2020-04-21] MEDS: ALBUTEROL SULFATE NEB 2.5 MG/0.5 ML INH INHALATION ×4 (02:05→20:23)
[2020-04-21] MEDS: METOPROLOL TARTRATE INJ 5 MG/5 ML VIAL IV PUSH ×2 (02:23→06:17)
[2020-04-21] MEDS: methylPREDNISolone SOD SUCC 40 MG VIAL IV PUSH ×3 (05:04→21:21)
[2020-04-21 05:30] LABS: Basophils Percent Auto 0.1 % (0.2-1.2); Hematocrit 45.1 % (42.0-52.0); Hemoglobin 14.7 g/dL (14.0-18.0); Immature Granulocyte Absolute 0.12 K/mm3 (0.00-0.031); Immature Granulocyte Percent A 0.5 % (0-0.5); Lymphocytes Absolute Auto 0.94 K/mm3 (0.9-3.2); Mean Corpuscular HGB Conc 32.6 g/dl (32-36); Mean Corpuscular Hemoglobin 29.6 pg (26-34); Mean Corpuscular Volume 90.7 fl (80-100); Mean Platelet Volume 9.5 fl (7.4-10.4); Monocytes Absolute Auto 1.1 K/mm3 (0.1-0.6); Monocytes Percent Auto 4.6 % (2.6-8.5); Neutrophils Absolute Auto 21.3 K/mm3 (1.3-6.7); Neutrophils Percent Auto 90.8 % (45.5-73.1); Platelet Count Result 300 k/mm3 (150-375); Red Blood Count 4.97 M/mm3 (4.6-6.20); Red Cell Distribution Width 13.8 % (11.5-14.5); White Blood Count 23.5 K/mm3 (4.5-10.0)
[2020-04-21 06:00] LABS: Anion Gap 11 mmol/L (8-16); Blood Urea Nitrogen 66 mg/dL (9-20); Calcium 8.8 mg/dL (8.4-10.2); Carbon Dioxide 22 mmol/L (22-30); Chloride 111 mmol/L (98-107); Estimated CRCL calculation 39 ml/min; Estimated Glomerular Filt Rate > 60; Glucose 122 mg/dL (75-110); Magnesium 2.6 mg/dL (1.6-2.3); Phosphorus 3.3 mg/dL (2.5-4.5); Potassium 3.4 mmol/L (3.4-5.0); Sodium 144 mmol/L (137-145)
[2020-04-21] MEDS: ATORVASTATIN 40 MG TABLET 80 MG PO (08:08)
[2020-04-21] MEDS: THIAMINE HCL 200 MG/2 ML VIAL 100 MG IV PUSH (08:08)
[2020-04-21] MEDS: ASPIRIN 81 MG ENTERIC TABLET PO (08:08)
[2020-04-21] MEDS: CLOPIDOGREL BISULFATE 75 MG TABLET PO (08:08)
--- NOTE | 2020-04-21 09:17 | PM.PNCARD ---
Progress Note: A&P Additional Plan 70-year-old man with coronary artery disease status post PTCA of the mid LAD as segment where the vessel is very tortuous over the weekend. Notes in the chart indicate the patient had a ST-elevation [place] which I do not believe was the case since this was nonoccluded artery. The electrocardiogram has been reviewed by myself I do not believe it is consistent with an acute occlusion of the LAD. Medication is being given for left ventricular systolic dysfunction with lisinopril. I am going to start a modest dose of carvedilol today. In addition dual anti-platelet therapy and atorvastatin will be continued. The interventionalist performing the procedure indicated that the optimum long-term plan for this gentleman is probably to request a cardiothoracic surgery consultation and consider surgical grafting of his LAD. At the time of this dictation I have not personally reviewed those angiograms. Jesus Bennett MD [facility] Subjective Date/time seen: Date of service 04/21/20 09:17 Interval history: Follow-up visit in this 70-year-old man who presented with spontaneous pneumothorax. Patient was brought to the cardiac catheterization lab urgently over the weekend because of acute coronary syndrome because of abnormalities noted on ECG and troponin elevation. According to the chart he was found to have disease in the mid LAD which was treated with balloon angioplasty. Stenting was not performed as this was a very tortuous vessel and stenting of this target lesion would of been very high risks at/challenging. this morning he reports to be feeling reasonably well he denies any dyspnea or chest pain. Still has a chest tube in place. Notes in the chart indicate that may be removed later today. Left ventricular systolic dysfunction is noted on echocardiogram report. Exam Const: General: comfortable and no acute distress Other: Very thin/ underweight cachectic-appearing patient offers no complaints HENMT: Mouth: Yes dry mucous membranes Eyes: Sclera: sclerae normal Pupils: Equal, round and reactive pupils present Neck: Neck: supple and no JVD Thyroid: thyroid normal Resp: Effort & Inspection: normal respiratory effort Other: breath sounds are tubular/diminished in both lung guzman Cardio: Rate: regular rate Rhythm: regular rhythm Other: no murmur no gallop GI: GI Palp: Yes Soft to palpation Auscultation: normal bowel sounds Skin: General skin exam: normal color Neuro: Cognition (Neuro): normal cognition Extrem: General: normal to inspection Objective Data Vital Signs Vital Signs: Vital Signs - 24 hr 04/20/20 10:00 04/20/20 12:00 04/20/20 14:00 Temperature 36.5 C Pulse Rate 101 H 108 H 94 Respiratory Rate 33 H 32 H 43 H Blood Pressure 106/97 H 116/99 H Pulse Oximetry 95 95 95 04/20/20 14:45 04/20/20 14:55 04/20/20 14:58 Temperature Pulse Rate 94 101 H Respiratory Rate 26 H 26 H Blood Pressure Pulse Oximetry 96 04/20/20 15:56 04/20/20 16:00 04/20/20 18:00 Temperature 36.3 C L Pulse Rate 101 H 97 111 H Respiratory Rate 42 H 35 H 38 H Blood Pressure 110/88 109/86 Pulse Oximetry 96 97 97 04/20/20 20:00 04/20/20 20:45 04/20/20 20:59 Temperature Pulse Rate 102 H 104 H 111 H Respiratory Rate 34 H 28 H 24 H Blood Pressure 108/77 Pulse Oximetry 97 99 04/20/20 22:21 04/20/20 22:55 04/21/20 00:00 Temperature 36.8 C Pulse Rate 94 97 96 Respiratory Rate 27 H 22 H Blood Pressure 90/72 L Pulse Oximetry 98 97 04/21/20 02:06 04/21/20 02:20 04/21/20 02:21 Temperature Pulse Rate 99 101 H 103 H Respiratory Rate 20 20 21 H Blood Pressure 103/74 Pulse Oximetry 98 04/21/20 02:23 04/21/20 03:21 04/21/20 04:00 Temperature Pulse Rate 104 H 97 99 Respiratory Rate 18 22 H Blood Pressure 100/82 Pulse Oximetry 99 100 04/21/20 06:00 04/21/20 06:17 04/21/20 06:20 Temperature Pulse Rate 106 H 108 H 103 H Respirat
[2020-04-21] MEDS: POTASSIUM CHLORIDE 20 MEQ TABLET 40 MEQ PO (09:37)
[2020-04-21] MEDS: carvediloL 3.125 MG TABLET PO ×2 (10:20→21:20)
--- NOTE | 2020-04-21 17:01 | PM.PNGS ---
Progress Note: A&P Assessment and Plan (1) Pneumothorax on left: Onset Date: ~07/19/19 Code(s): J93.9 - Pneumothorax, unspecified Status: Acute Assessment and Plan: Patient has chest tube in place. It was withdrawn some on Tuesday because it was looking to be in too far. It Looks good on chest x-ray yesterday a.m. and today and there is only a slight apical rim of pneumothorax. (see report). the chest tube has been on Pleur-Evac water-seal drainage for now about 24 hours and he has been doing well with no signs of recurrence of the pneumothorax. Will plan to repeat standard chest x-ray tomorrow and possibly remove the tube if clamping leads to no recurrence of the pneumothorax later in the day tomorrow. (2) Tobacco dependence: Code(s): F17.200 - Nicotine dependence, unspecified, uncomplicated Status: Chronic (3) COPD (chronic obstructive pulmonary disease): Onset Date: Unknown Code(s): J44.9 - Chronic obstructive pulmonary disease, unspecified Status: Acute Assessment and Plan: Material Combiner indicates patient has now been started on some steroids for his wheezing and extubation of COPD. Additional Plan Will repeat chest x-ray tomorrow and if patient doing well may consider removal of chest tube tomorrow after a clamping trial mid day. Subjective Subjective Date/Time Seen: 04/21/20 16:01 Patient lying in bed in ICU room 7. He wakens easily. He speaks with a clear voice. He denies much chest pain. States he will be happy to get the chest tube out tomorrow if we can do it. Review of Systems Review of Systems: ROS unobtainable: Yes unobtainable due to medical condition and unobtainable due to mental status Constitutional: Constitutional: Reports as per HPI and Denies headache(s) Eyes: Eyes: Denies loss of vision and Denies eye pain ENT: Reports Normal hearing present, Denies change in voice, Denies dizziness and Denies headache(s) Cardiovascular: Cardiovascular: Denies chest pain and Denies dyspnea Respiratory: Respiratory: Reports no additional respiratory complaints, Denies dyspnea and Denies wheezing Gastrointestinal: Gastrointestinal: Denies abdominal pain Musculoskeletal: Musculoskeletal: Denies back pain and Denies arthralgias Neurologic: Reports Normal hearing present, Denies dizziness, Denies headache(s), Denies loss of vision and Denies memory loss Exam Const: General: cooperative, no acute distress, well developed, alert, awake and anxious Nutritional Appearance: well nourished, thin ( Somewhat barrel-chested) and underweight Limitations: no limitations and altered mental status Other: may be going through some withdrawal from alcohol use/abuse. Seems more alert and better able to answer questions today. HENMT: Head: normal to inspection, normocephalic and atraumatic Ears: hearing grossly normal bilaterally General nose exam: Normal external nose present Face and sinus: normal facial exam Mouth: Yes Normal oral and palatal mucosa present, Yes tongue normal and Yes moist mucous membranes Eyes: General: appearance normal, both eyes and all related structures Pupils: Equal, round and reactive pupils present EOM: EOMs intact bilaterally Neck: Neck: normal visual inspection, no lymphadenopathy, trachea midline and supple Lymphatic: no lymphadenopathy noted Chest: Chest palpation & inspection: normal inspection of the chest Other: I re-examined area of chest tube it seems to be nicely secured with dressing and tape. There is no bubbling across with deep breath or cough. (No air leak). Pleur-Evac is to water seal at this time. Resp: Effort & Inspection: normal respiratory effort, able to speak in complete sentences and Actively coughing ( mild dry) dry Auscultation: clear to auscultation bilaterally and wheezes ( mild bilateral expiratory wheezing.) Percussion: hyperresonance Cardio: Jugular venous distension: no JVD Rate
--- NOTE | 2020-04-21 18:31 | PM.IMPN ---
Progress Note: A&P Assessment and Plan (1) Acute respiratory failure: Qualifiers: Respiratory failure complication: unspecified whether with hypoxia or hypercapnia Qualified Code(s): J96.00 - Acute respiratory failure, unspecified whether with hypoxia or hypercapnia Code(s): J96.00 - Acute respiratory failure, unspecified whether with hypoxia or hypercapnia Status: Acute Assessment and Plan: Appears to be secondary to acute pneumothorax and probable congestive heart failure. Continue oxygen supplementation and wean off as tolerated. Continue chest tube for pneumothorax and continue general surgery recommendations. continue to treat heart failure (2) Primary spontaneous pneumothorax: Onset Date: ~04/19/20 Code(s): J93.11 - Primary spontaneous pneumothorax Status: Inactive Assessment and Plan: Likely related to chronic tobacco abuse. Chest tube is in place. General Surgery to manage the patient's pneumothorax. (3) STEMI (ST elevation myocardial infarction): Qualifiers: Involved coronary artery: unspecified coronary artery Qualified Code(s): I21.3 - ST elevation (STEMI) myocardial infarction of unspecified site Code(s): I21.3 - ST elevation (STEMI) myocardial infarction of unspecified site Status: Acute Assessment and Plan: ST-elevation with mild troponin elevation and will and was taken to the research lab assistant where long tortuous subtotal LAD was found. Not amendable to stent so was angioplastied with increase in TMI flow (4) COPD exacerbation: Code(s): J44.1 - Chronic obstructive pulmonary disease with (acute) exacerbation Status: Inactive Assessment and Plan: Xopenex bronchodilator. Continue oxygen supplementation. and steroids were added 04/20 with marked elevation in WBC today (5) Elevated troponin: Code(s): R77.8 - Other specified abnormalities of plasma proteins Status: Inactive Assessment and Plan: as above ST elevation [place] (6) HTN (hypertension): Qualifiers: Hypertension type: unspecified Qualified Code(s): I10 - Essential (primary) hypertension Code(s): I10 - Essential (primary) hypertension Status: Chronic Assessment and Plan: blood pressure toward the low side and only receiving low-dose lisinopril and Coreg now. Off clonidine and amlodipine. Part of tachycardia could be rebound from stopping clonidine as well as heart failure and COPD (7) Suspected 2019 novel coronavirus infection: Code(s): Z20.828 - Contact with and (suspected) exposure to other viral communicable diseases Status: Acute Assessment and Plan: Patient has been swabbed for COVID-19. and found to be negative. (8) Tobacco dependence: Code(s): F17.200 - Nicotine dependence, unspecified, uncomplicated Status: Chronic Assessment and Plan: I have counseled the patient regarding tobacco cessation for 4 minutes. He does not desire a nicotine patch. (9) Acute systolic CHF (congestive heart failure): Code(s): I50.21 - Acute systolic (congestive) heart failure Status: Acute Assessment and Plan: diuresed some gingerly yesterday. EF only about 20%. Low-dose Coreg and lisinopril with spironolactone as pressure will allow (10) ETOH abuse: Code(s): F10.10 - Alcohol abuse, uncomplicated Status: Acute Assessment and Plan: suspected ETOH abuse. Continue thiamin, and p.r.n. benzo diazepam Subjective Date/time seen: 04/21/20 18:31 Interval history: Date of visit 04/21. 70-year-old male with COPD and hypertension presented to [facility] with increasing shortness of breath found to have a spontaneous left pneumothorax. Chest tube was placed and troponin was elevated too and transferred here for evaluation. EKG showed some ST elevation inferior and laterally and patient was taken to research lab assistant where a long tortuous subtotal occlusion
[2020-04-21] MEDS: ENOXAPARIN 40 MG/0.4 ML SYRINGE SUB-Q (21:20)
[2020-04-22] VITALS (25 sets, daily range): BP systolic 98–116; BP diastolic 72–93; PULSE 72–103; RESP 16–32; TEMP 36.2–36.8; O2SAT 93–98
[2020-04-22] MEDS: ALBUTEROL SULFATE NEB 2.5 MG/0.5 ML INH INHALATION ×4 (02:09→20:24)
[2020-04-22] MEDS: IPRATROPIUM BR 0.02% INH SOLN 0.5 MG/2.5 ML VIAL INHALATION ×4 (02:09→20:24)
[2020-04-22 04:30] LABS: Basophils Percent Auto 0.1 % (0.2-1.2); Hematocrit 41.9 % (42.0-52.0); Hemoglobin 14.1 g/dL (14.0-18.0); Immature Granulocyte Absolute 0.17 K/mm3 (0.00-0.031); Immature Granulocyte Percent A 0.7 % (0-0.5); Lymphocytes Absolute Auto 0.63 K/mm3 (0.9-3.2); Lymphocytes Percent Auto 2.6 % (18.3-44.2); Mean Corpuscular HGB Conc 33.7 g/dl (32-36); Mean Corpuscular Hemoglobin 30.3 pg (26-34); Mean Corpuscular Volume 89.9 fl (80-100); Mean Platelet Volume 9.6 fl (7.4-10.4); Monocytes Percent Auto 4.1 % (2.6-8.5); Neutrophils Absolute Auto 22.3 K/mm3 (1.3-6.7); Neutrophils Percent Auto 92.5 % (45.5-73.1); Platelet Count Result 274 k/mm3 (150-375); Red Blood Count 4.66 M/mm3 (4.6-6.20); Red Cell Distribution Width 13.9 % (11.5-14.5); White Blood Count 24.1 K/mm3 (4.5-10.0)
[2020-04-22 04:43] LABS: Alanine Aminotransferase 122 U/L (4-50); Albumin Level 2.9 g/dL (3.5-5.1); Alkaline Phosphatase 61 U/L (38-126); Anion Gap 6 mmol/L (8-16); Aspartate Amino Transferase 98 U/L (17-59); Bilirubin,Total 1.1 mg/dL (0.2-1.3); Blood Urea Nitrogen 72 mg/dL (9-20); Calcium 8.8 mg/dL (8.4-10.2); Carbon Dioxide 24 mmol/L (22-30); Chloride 110 mmol/L (98-107); Estimated CRCL calculation 39 ml/min; Estimated Glomerular Filt Rate > 60; Glucose 170 mg/dL (75-110); Magnesium 2.7 mg/dL (1.6-2.3); Potassium 4.2 mmol/L (3.4-5.0); Sodium 140 mmol/L (137-145)
[2020-04-22 05:30] LABS: Thyroid Stimulating Hormone Reflex 0.458 uIU/mL (0.465-4.68)
[2020-04-22] MEDS: methylPREDNISolone SOD SUCC 40 MG VIAL IV PUSH ×3 (06:06→20:33)
[2020-04-22] MEDS: lisinopriL 2.5 MG TABLET PO (07:32)
[2020-04-22] MEDS: SPIRONOLACTONE 25 MG TABLET PO (07:32)
[2020-04-22] MEDS: CLOPIDOGREL BISULFATE 75 MG TABLET PO (07:33)
[2020-04-22] MEDS: THIAMINE HCL 200 MG/2 ML VIAL 100 MG IV PUSH (07:33)
[2020-04-22] MEDS: ASPIRIN 81 MG ENTERIC TABLET PO (07:33)
[2020-04-22] MEDS: ATORVASTATIN 40 MG TABLET 80 MG PO (07:33)
[2020-04-22] MEDS: carvediloL 3.125 MG TABLET PO ×2 (07:33→20:33)
[2020-04-22 10:14] LABS: Total Triiodothyronine (T3) 0.51 NG/ML (0.97-1.69)
--- NOTE | 2020-04-22 15:30 | PM.PNGS ---
Progress Note: A&P Assessment and Plan (1) Pneumothorax on left: Onset Date: ~07/19/19 Code(s): J93.9 - Pneumothorax, unspecified Status: Acute Assessment and Plan: Patient has chest tube in place. It was withdrawn some on Tuesday because it was looking to be in too far. It Looks good on chest x-ray since then and there is only a slight apical rim of pneumothorax on the morning CXR today. (see report). The chest tube has been on Pleur-Evac water-seal drainage for now about 24 hours and he has been doing well with no signs of recurrence of the pneumothorax. Will plan to repeat standard chest x-ray tomorrow and possibly remove the tube if clamping leads to no recurrence of the pneumothorax later in the day tomorrow. (D/W Dr. Corcoran) (2) Tobacco dependence: Code(s): F17.200 - Nicotine dependence, unspecified, uncomplicated Status: Chronic (3) COPD (chronic obstructive pulmonary disease): Onset Date: Unknown Code(s): J44.9 - Chronic obstructive pulmonary disease, unspecified Status: Acute Assessment and Plan: Several days ago the patient was started on some steroids for his wheezing and excerbation of COPD. Additional Plan Will repeat chest x-ray tomorrow and if patient doing well may consider removal of chest tube tomorrow after a clamping trial mid day. Subjective Subjective Date/Time Seen: 04/22/20 15:30 Patient is sleeping with his head slightly up when I entered the room in ICU 7. Nurse reports his breathing did not change nor did his heart rate when his chest tube system was placed back on suction earlier today. Patient had of uneventful night apparently. Is acting very sedated at this time. Review of Systems Review of Systems: ROS unobtainable: Yes unobtainable due to medical condition and unobtainable due to mental status Exam Const: General: cooperative, no acute distress, well developed, alert, awake and anxious Nutritional Appearance: well nourished, thin ( Somewhat barrel-chested) and underweight Limitations: no limitations and altered mental status Other: May be going through some withdrawal from alcohol use/abuse. HENMT: Head: normal to inspection, normocephalic and atraumatic Ears: hearing grossly normal bilaterally General nose exam: Normal external nose present Face and sinus: normal facial exam Mouth: Yes Normal oral and palatal mucosa present, Yes tongue normal and Yes moist mucous membranes Eyes: General: appearance normal, both eyes and all related structures Pupils: Equal, round and reactive pupils present EOM: EOMs intact bilaterally Neck: Neck: normal visual inspection, no lymphadenopathy, trachea midline and supple Lymphatic: no lymphadenopathy noted Chest: Chest palpation & inspection: normal inspection of the chest Other: I re-examined area of chest tube it seems to be nicely secured with dressing and tape. There is no bubbling across with deep breath. (No air leak). Pleur-Evac is to water seal and 20 cm of suction at this time. Resp: Effort & Inspection: normal respiratory effort, able to speak in complete sentences and Actively coughing ( mild dry) dry Auscultation: clear to auscultation bilaterally and wheezes ( mild bilateral expiratory wheezing.) Percussion: hyperresonance Cardio: Jugular venous distension: no JVD Rate: regular rate and tachycardic Rhythm: regular rhythm Heart sounds: S1 normal heart sound present and S2 normal heart sound present GI: Inspection: normal to inspection Auscultation: normal bowel sounds Rectal Exam: deferred : General: Yes no CVA tenderness Urinary Catheter: Urinary Catheter: urine clear Back/Spine/Pelvis: Back: no CVA tenderness and No mass Cervical Spine: cervical ROM normal Skin: General skin exam: normal color and no rashes or lesions noted Lesions: no lesions Rashes: no rashes Trauma: no lacerations or abrasions Wounds: no wounds Hair: normal Nails: normal
--- NOTE | 2020-04-22 15:57 | PM.IMPN ---
Progress Note: A&P Assessment and Plan (1) Acute respiratory failure: Qualifiers: Respiratory failure complication: unspecified whether with hypoxia or hypercapnia Qualified Code(s): J96.00 - Acute respiratory failure, unspecified whether with hypoxia or hypercapnia Code(s): J96.00 - Acute respiratory failure, unspecified whether with hypoxia or hypercapnia Status: Acute Assessment and Plan: Secondary to acute pneumothorax, COPD exacerbation and probable congestive heart failure. Continue oxygen supplementation and wean off as tolerated. Continue chest tube for pneumothorax and continue general surgery recommendations. Continue to treat heart failure (2) Primary spontaneous pneumothorax: Onset Date: ~04/19/20 Code(s): J93.11 - Primary spontaneous pneumothorax Status: Inactive Assessment and Plan: Likely related to COPD and chronic lung disease with bullous emphysema from ongoing chronic tobacco abuse. Chest tube is in place. Placed back on suction due to small persistent PTX. General Surgery managing the cheat tube (3) STEMI (ST elevation myocardial infarction): Qualifiers: Involved coronary artery: unspecified coronary artery Qualified Code(s): I21.3 - ST elevation (STEMI) myocardial infarction of unspecified site Code(s): I21.3 - ST elevation (STEMI) myocardial infarction of unspecified site Status: Acute Assessment and Plan: ST-elevation with troponin climbing to 7.66. Patient was taken for LHC which showed a long tortuous subtotally occluded LADthat was not amendable to stent so was angioplastied with increase in ILIR flow. Aggressive medical managment with Plavix, ASA, Coreg, Lipitor, Lisinopril and smoking cessation advised. (4) COPD exacerbation: Code(s): J44.1 - Chronic obstructive pulmonary disease with (acute) exacerbation Status: Inactive Assessment and Plan: Wheezing mild today. Continue Xopenex and Solu-Medrol. Continue oxygen supplementation. WBC up to 24K felt related to the steroids. Continue Symbicort. (5) Elevated troponin: Code(s): R77.8 - Other specified abnormalities of plasma proteins Status: Inactive Assessment and Plan: Related to the ST elevation [place] as above. (6) HTN (hypertension): Qualifiers: Hypertension type: unspecified Qualified Code(s): I10 - Essential (primary) hypertension Code(s): I10 - Essential (primary) hypertension Status: Chronic Assessment and Plan: Patient's blood pressure was reviewed on 04/22 Blood pressure remains well controlled. Will continue current medications lisinopril and Coreg now. Off clonidine and amlodipine. (7) Suspected 2019 novel coronavirus infection: Code(s): Z20.828 - Contact with and (suspected) exposure to other viral communicable diseases Status: Acute Assessment and Plan: Patient has been swabbed for COVID-19. and found to be negative. (8) Tobacco dependence: Code(s): F17.200 - Nicotine dependence, unspecified, uncomplicated Status: Chronic Assessment and Plan: Patient has been counseled on the benefits of tobacco cessation. (9) Acute systolic CHF (congestive heart failure): Code(s): I50.21 - Acute systolic (congestive) heart failure Status: Acute Assessment and Plan: Echo showing EF 20-25% with wall motion abnormalities consistent with Tako-Tsubo. Patient was diuresed gingerly. Continue Coreg, lisinopril and spironolactone as pressure will allow (10) ETOH abuse: Code(s): F10.10 - Alcohol abuse, uncomplicated Status: Acute Assessment and Plan: Suspected ETOH abuse. Continue thiamin, and p.r.n. benzos. (11) DVT prophylaxis: Code(s): Z29.9 - Encounter for prophylactic measures, unspecified Status: Acute Assessment and Plan: Lovenox Subjective Bert
--- NOTE | 2020-04-22 16:41 | PM.PNCARD ---
Progress Note: A&P Assessment and Plan (1) STEMI (ST elevation myocardial infarction): Qualifiers: Involved coronary artery: unspecified coronary artery Qualified Code(s): I21.3 - ST elevation (STEMI) myocardial infarction of unspecified site Code(s): I21.3 - ST elevation (STEMI) myocardial infarction of unspecified site Status: Acute Assessment and Plan: Patient may suffered an acute [place] Tuesday morning, atypical presentation, no chest pain and EKG was not typical. EKG changes could have been 2nd LV aneurysm or pericarditis, trop flat prior to the cath, trop did increase (after the procedure) Mid Left anterior descending angioplasty with resultant good flow, but the LAD could not be easily stented. Plan for POSSIBLE eventual ABRAMS to the Left anterior descending although stenting is still an option. Overall physical status is not great; he is not a robust individual. Continue aspirin, Plavix, statin. Stable on medical therapy. Moving out of ICU. (2) Acute systolic CHF (congestive heart failure): Code(s): I50.21 - Acute systolic (congestive) heart failure Status: Acute Assessment and Plan: Has developed acute CHF, not surprising in view of the severe left ventricular dysfunction and ischemic cardiomyopathy, EF 20-25%. Hopefully most of this will be stunned myocardium since the troponin elevation was modest and he is not Q'd out extensively laterally on his EKG. Continue supportive care. Will continue carvedilol, lisinopril, and spironolactone as BP tolerates. DC'd amlodipine to give us room to work with his blood pressure. No need for further diuresis as pt appears euvolemic and BUN climbing. (3) COPD (chronic obstructive pulmonary disease): Onset Date: Unknown Code(s): J44.9 - Chronic obstructive pulmonary disease, unspecified Status: Acute Assessment and Plan: Patient has severe COPD with blebs. (4) Pneumothorax on left: Onset Date: ~07/19/19 Code(s): J93.9 - Pneumothorax, unspecified Status: Acute Assessment and Plan: Spontaneous pneumo, status post chest tube (5) Confusion: Code(s): R41.0 - Disorientation, unspecified Status: Acute Assessment and Plan: possible alcohol withdrawal. (6) Right upper lobe pulmonary nodule: Code(s): R91.1 - Solitary pulmonary nodule Status: Acute Assessment and Plan: Spiculated right upper lobe nodule noted on chest x-ray which will need to be evaluated at a later date Radiology recoommended a [address] Discussed this w/ pt and dalila, want to make sure this is no Cancer and not growing. Subjective Date/time seen: 04/22/20 16:41 Interval history: Follow-up for CAD, a possible acute [place] Patient had an atypical presentation, presenting with a pneumothorax at [facility] and receiving a chest tube, then transferred to [facility]. Though he had no c/o chest discomfort, His EKG showed some atypical anterolateral ST elevation (not typical for a STEMI) and his troponin was 2 so he was taken to the labor relations consultant early Tuesday morning. It is subtotally occluded mid Left anterior descending which Dr. Edwards angioplastied but the vessel was tortuous and calcified and was not amenable to stent. Pt had ILIR grade 3 flow at the completion of the procedure and the recommendation was to eventually have a ABRAMS to the Left anterior descending as the best option. Echo shows severe left ventricular dysfunction with akinesis of the distal 2/3 of the ventricle (the Left anterior descending was a wrap-around vessel supplying the distal inferior wall). EF 20-25%. Troponns went up to 8. Date of Service: 04/22/2020 Pt diuresed over the last couple
--- NOTE | 2020-04-22 17:55 | PC.NURSE ---
Pt transfered to IMU to room 214 at 1740. Report given to RN. Patient and belongings sent in bed with two RN's. Patient in room, medications given to RN and chest tube assessment done with both RN's.
--- NOTE | 2020-04-22 18:13 | PC.NURSE ---
This patient, Gilmar Neff , was received from [ ICU ] on 04/22/20 at 1750. Personal belongings list checked and signed. Patient/family oriented to unit policies and routines
[2020-04-22] MEDS: ENOXAPARIN 40 MG/0.4 ML SYRINGE SUB-Q (20:32)
[2020-04-23] VITALS (27 sets, daily range): BP systolic 97–113; BP diastolic 65–80; PULSE 79–100; RESP 12–22; TEMP 35.8–37.2; O2SAT 92–95
[2020-04-23] MEDS: IPRATROPIUM BR 0.02% INH SOLN 0.5 MG/2.5 ML VIAL INHALATION ×4 (02:06→19:41)
[2020-04-23] MEDS: ALBUTEROL SULFATE NEB 2.5 MG/0.5 ML INH INHALATION ×4 (02:06→19:41)
[2020-04-23] MEDS: methylPREDNISolone SOD SUCC 40 MG VIAL IV PUSH (05:46)
[2020-04-23 05:47] LABS: Basophils Percent Auto 0.2 % (0.2-1.2); Hematocrit 44.5 % (42.0-52.0); Hemoglobin 14.6 g/dL (14.0-18.0); Immature Granulocyte Absolute 0.12 K/mm3 (0.00-0.031); Immature Granulocyte Percent A 0.5 % (0-0.5); Lymphocytes Percent Auto 2.5 % (18.3-44.2); Mean Corpuscular HGB Conc 32.8 g/dl (32-36); Mean Corpuscular Hemoglobin 30.2 pg (26-34); Mean Corpuscular Volume 92.1 fl (80-100); Mean Platelet Volume 10.3 fl (7.4-10.4); Monocytes Percent Auto 4.1 % (2.6-8.5); Neutrophils Absolute Auto 22.6 K/mm3 (1.3-6.7); Neutrophils Percent Auto 92.7 % (45.5-73.1); Nucleated Red Blood Cells Perc 0.1 % (0.0-0.2); Platelet Count Result 262 k/mm3 (150-375); Red Blood Count 4.83 M/mm3 (4.6-6.20); Red Cell Distribution Width 13.9 % (11.5-14.5); White Blood Count 24.3 K/mm3 (4.5-10.0)
[2020-04-23 06:00] LABS: Alanine Aminotransferase 313 U/L (4-50); Albumin Level 3.1 g/dL (3.5-5.1); Alkaline Phosphatase 64 U/L (38-126); Anion Gap 6 mmol/L (8-16); Aspartate Amino Transferase 267 U/L (17-59); Bilirubin,Total 1.2 mg/dL (0.2-1.3); Blood Urea Nitrogen 67 mg/dL (9-20); Calcium 8.6 mg/dL (8.4-10.2); Carbon Dioxide 26 mmol/L (22-30); Chloride 109 mmol/L (98-107); Estimated CRCL calculation 46 ml/min; Estimated Glomerular Filt Rate > 60; Glucose 115 mg/dL (75-110); Magnesium 2.5 mg/dL (1.6-2.3); Phosphorus 3.7 mg/dL (2.5-4.5); Potassium 4.3 mmol/L (3.4-5.0); Sodium 141 mmol/L (137-145)
[2020-04-23] MEDS: CLOPIDOGREL BISULFATE 75 MG TABLET PO (08:27)
[2020-04-23] MEDS: carvediloL 3.125 MG TABLET PO ×2 (08:27→19:40)
[2020-04-23] MEDS: SPIRONOLACTONE 25 MG TABLET PO (08:28)
[2020-04-23] MEDS: ASPIRIN 81 MG ENTERIC TABLET PO (08:28)
[2020-04-23] MEDS: THIAMINE HCL 200 MG/2 ML VIAL 100 MG IV PUSH (08:28)
[2020-04-23] MEDS: ATORVASTATIN 40 MG TABLET 80 MG PO (08:28)
[2020-04-23] MEDS: lisinopriL 2.5 MG TABLET PO (09:32)
--- NOTE | 2020-04-23 09:41 | PM.PNCARD ---
Progress Note: A&P Assessment and Plan (1) STEMI (ST elevation myocardial infarction): Qualifiers: Involved coronary artery: unspecified coronary artery Qualified Code(s): I21.3 - ST elevation (STEMI) myocardial infarction of unspecified site Code(s): I21.3 - ST elevation (STEMI) myocardial infarction of unspecified site Status: Acute Assessment and Plan: Patient may suffered an acute [place] Tuesday04/19/2020. Atypical presentation, no chest pain and EKG was not typical. EKG changes could have been 2nd LV aneurysm or pericarditis, trop flat prior to the cath, trop did increase (after the procedure) Mid Left anterior descending angioplasty with resultant good flow, but the LAD could not be easily stented. Plan for POSSIBLE eventual ABRAMS to the Left anterior descending although stenting is still an option. Plan is for medical management at this time. Will reassess need to refer to cardiothoracic surgery as an outpatient. Overall physical status is not great; he is not a robust individual. Continue aspirin, Plavix, statin. Stable on medical therapy. (2) Acute systolic CHF (congestive heart failure): Code(s): I50.21 - Acute systolic (congestive) heart failure Status: Acute Assessment and Plan: Has developed acute CHF, not surprising in view of the severe left ventricular dysfunction and ischemic cardiomyopathy, EF 20-25%. Hopefully most of this will be stunned myocardium since the troponin elevation was modest and he is not Q'd out extensively laterally on his EKG. Continue carvedilol, lisinopril and spironolactone as BP tolerates. DC'd amlodipine to give us room to work with his blood pressure. No need for further diuresis as he appears euvolemic . (3) COPD (chronic obstructive pulmonary disease): Onset Date: Unknown Code(s): J44.9 - Chronic obstructive pulmonary disease, unspecified Status: Acute Assessment and Plan: He has severe COPD with blebs. (4) Pneumothorax on left: Onset Date: ~07/19/19 Code(s): J93.9 - Pneumothorax, unspecified Status: Acute Assessment and Plan: Spontaneous pneumo, status post chest tube management per Dr. Doss. Hopefully this will be discontinued soon. (5) Confusion: Code(s): R41.0 - Disorientation, unspecified Status: Acute Assessment and Plan: Possible alcohol withdrawal. (6) Right upper lobe pulmonary nodule: Code(s): R91.1 - Solitary pulmonary nodule Status: Acute Assessment and Plan: Spiculated right upper lobe nodule noted on chest x-ray which will need to be evaluated at a later date Radiology recommended a [address] Discussed this w/ pt and dalila, want to make sure this is no Cancer and not growing. Additional Plan Discontinue Ji catheter. PT/OT. Increase activity. Plan discussed Dr. Bennett 1022 04/23/2020 Subjective Date/time seen: 04/23/20 09:42 Interval history: Follow-up for: CAD, a possible acute [place] status post cardiac catheterization 04/19/2020 with angioplasty to the mid LAD. Date of service: Subjective: Denied chest discomfort, shortness of breath or lightheadedness. Wants to know when he is going to go home. Has yet to get out of bed. Review of Systems Constitutional: Constitutional: Reports weakness ENT: Denies epistaxis Cardiovascular: Cardiovascular: Denies chest pain, Denies diaphoresis, Denies leg edema, Denies dyspnea and Denies dyspnea on exertion Respiratory: Respiratory: Denies cough, Denies dyspnea and Denies dyspnea on exertion Gastrointestinal: Gastrointestinal: Denies abdominal pain and Denies melena Genitourinary: Genitourinary: Denies hematuria Musculoskeletal: Muscu
--- NOTE | 2020-04-23 13:32 | PM.IMPN ---
Progress Note: A&P Assessment and Plan (1) Acute respiratory failure: Qualifiers: Respiratory failure complication: unspecified whether with hypoxia or hypercapnia Qualified Code(s): J96.00 - Acute respiratory failure, unspecified whether with hypoxia or hypercapnia Code(s): J96.00 - Acute respiratory failure, unspecified whether with hypoxia or hypercapnia Status: Acute Assessment and Plan: Secondary to acute pneumothorax, COPD exacerbation and probable congestive heart failure. CHF symptoms appear to have resolved. Weaned to room air. (2) Primary spontaneous pneumothorax: Onset Date: ~04/19/20 Code(s): J93.11 - Primary spontaneous pneumothorax Status: Inactive Assessment and Plan: Likely related to COPD and chronic lung disease with bullous emphysema from ongoing chronic tobacco abuse. CT chest confirms moderate to severe emphysema with apical bullous disease. Chest tube is in place. Placed back on suction yesterday due to small persistent PTX. CXR today showing resolution of PTX. General Surgery managing the cheat tube (3) STEMI (ST elevation myocardial infarction): Qualifiers: Involved coronary artery: unspecified coronary artery Qualified Code(s): I21.3 - ST elevation (STEMI) myocardial infarction of unspecified site Code(s): I21.3 - ST elevation (STEMI) myocardial infarction of unspecified site Status: Acute Assessment and Plan: ST-elevation with troponin climbing to 7.66. Patient was taken for C which showed a long tortuous subtotally occluded LAD that was not amendable to stent so was angioplastied with increase in ILIR flow. Surgical intervention being considered. Aggressive medical management with Plavix, ASA, Coreg, Lipitor, Lisinopril and smoking cessation advised. (4) COPD exacerbation: Code(s): J44.1 - Chronic obstructive pulmonary disease with (acute) exacerbation Status: Inactive Assessment and Plan: CT chest showing moderate to severe emphysema with apical bullous disease. Wheezing resolved today. Continue nebs. WBC up to 24K felt related to the steroids. Continue Symbicort. Will stop Solu-Medrol. (5) Elevated troponin: Code(s): R77.8 - Other specified abnormalities of plasma proteins Status: Inactive Assessment and Plan: Related to the ST elevation [place] as above. (6) HTN (hypertension): Qualifiers: Hypertension type: unspecified Qualified Code(s): I10 - Essential (primary) hypertension Code(s): I10 - Essential (primary) hypertension Status: Chronic Assessment and Plan: Patient's blood pressure was reviewed on 04/23 Blood pressure remains well controlled. Will continue current medications lisinopril and Coreg now. Off clonidine and amlodipine. (7) Suspected 2019 novel coronavirus infection: Code(s): Z20.828 - Contact with and (suspected) exposure to other viral communicable diseases Status: Acute Assessment and Plan: Patient has been swabbed for COVID-19. and found to be negative. (8) Tobacco dependence: Code(s): F17.200 - Nicotine dependence, unspecified, uncomplicated Status: Chronic Assessment and Plan: Patient has been counseled on the benefits of tobacco cessation. (9) Acute systolic CHF (congestive heart failure): Code(s): I50.21 - Acute systolic (congestive) heart failure Status: Acute Assessment and Plan: Echo showing EF 20-25% with wall motion abnormalities consistent with Tako-Tsubo. Patient was diuresed gingerly. Continue Coreg, lisinopril and spironolactone as blood pressure will allow (10) ETOH abuse: Code(s): F10.10 - Alcohol abuse, uncomplicated Status: Acute Assessment and Plan: Suspected ETOH abuse. Continue thiamine. He has Ativan and Librium available as needed but has not required these meds since 04/20.
--- NOTE | 2020-04-23 14:16 | PCPTNOTE ---
Attempted PT eval. Pt refused therapy. States he just went to bed and is too tired to get up again. Christopher RN states Dr is coming to take out chest tube. Will try again tomorrow.
--- NOTE | 2020-04-23 17:28 | PM.PNGS ---
Progress Note: A&P Assessment and Plan (1) Pneumothorax on left: Onset Date: ~07/19/19 Code(s): J93.9 - Pneumothorax, unspecified Status: Acute Assessment and Plan: Patient has chest tube in place. It was withdrawn some on Tuesday because it was looking to be in too far. It Looks good on chest x-ray since then and there is only a slight apical rim of pneumothorax on the morning CXR yesterdday. (see report). The chest tube has been on Pleur-Evac water-seal drainage for now about 2 hours before his a.m. chest x-ray which then showed no signs of recurrence of the pneumothorax. patient has not had any shortness of breath or chest pain today. Repeat chest x-ray with the chest tube clamped for 2hrs. showed no pneumothorax, so therefore the chest tube was removed with help of the nurses at around 4:30 p.m. Will repeat standard AP chest x-ray portable in a.m. and if no signs pneumothorax would be all right with me for the patient to go home tomorrow. The chest tube site was dressed with Vaseline gauze, a 3 x 3 and tape. This can be removed in 48 hours and then the patient can apply bacitracin or Neosporin ointment on it and a Band-Aid until sutures be removed which could be at my office in 1 - 2 weeks. (2) Tobacco dependence: Code(s): F17.200 - Nicotine dependence, unspecified, uncomplicated Status: Chronic Assessment and Plan: Encouraged patient to stay of cigarettes when he gets out of the hospital. (3) COPD (chronic obstructive pulmonary disease): Onset Date: Unknown Code(s): J44.9 - Chronic obstructive pulmonary disease, unspecified Status: Acute Assessment and Plan: Several days ago the patient was started on some steroids for his wheezing and excerbation of COPD. Additional Plan Will repeat chest x-ray tomorrow and if patient doing well may consider removal of chest tube tomorrow after a clamping trial mid day. Subjective Subjective Date/Time Seen: 04/23/20 17:00 Patient denies shortness of breath. Denies chest pain at this time. Chest x-ray with chest tube clamped showed no pneumothorax Review of Systems Constitutional: Constitutional: Reports as per HPI and Denies headache(s) Eyes: Eyes: Denies loss of vision and Denies eye pain ENT: Reports Normal hearing present, Denies change in voice, Denies dizziness and Denies headache(s) Cardiovascular: Cardiovascular: Denies chest pain and Denies dyspnea Respiratory: Respiratory: Reports no additional respiratory complaints, Denies excessive phlegm production, Denies dyspnea and Denies wheezing Gastrointestinal: Gastrointestinal: Denies abdominal pain Musculoskeletal: Musculoskeletal: Denies back pain and Denies arthralgias Neurologic: Reports Normal hearing present, Denies dizziness, Denies headache(s), Denies loss of vision and Denies memory loss Psychiatric: Psychiatric: Denies memory loss and Denies panic attacks Endocrine: Endocrine: Reports no additional endocrine complaints Hematologic/Lymphatic: Hematologic/Lymphatic: Reports no additional hematologic/lymphatic complaints Allergic/Immunologic: Allergic/Immunologic: Denies wheezing Exam Const: General: cooperative, no acute distress, well developed, alert, awake and anxious Nutritional Appearance: well nourished, thin ( Somewhat barrel-chested) and underweight Limitations: no limitations and altered mental status Other: May be going through some withdrawal from alcohol use/abuse. HENMT: Head: normal to inspection, normocephalic and atraumatic Ears: hearing grossly normal bilaterally General nose exam: Normal external nose present Face and sinus: normal facial exam Mouth: Yes Normal oral and palatal mucosa present, Yes tongue normal and Yes moist mucous membranes Eyes: General: appearance normal, both eyes and all related structures Pupils: Equal, round and reactive pupils present EOM: EOMs intact bilaterally Neck: Neck: norm
[2020-04-23] MEDS: ENOXAPARIN 40 MG/0.4 ML SYRINGE SUB-Q (19:41)
[2020-04-24] VITALS (26 sets, daily range): BP systolic 91–105; BP diastolic 55–75; PULSE 69–95; RESP 16–24; TEMP 36.1–37.7; O2SAT 89–97
[2020-04-24] MEDS: ALBUTEROL SULFATE NEB 2.5 MG/0.5 ML INH INHALATION ×4 (02:29→20:46)
[2020-04-24] MEDS: IPRATROPIUM BR 0.02% INH SOLN 0.5 MG/2.5 ML VIAL INHALATION ×2 (02:29→08:08)
[2020-04-24 05:23] LABS: Basophils Percent Auto 0.1 % (0.2-1.2); Hematocrit 41.4 % (42.0-52.0); Hemoglobin 13.5 g/dL (14.0-18.0); Immature Granulocyte Absolute 0.11 K/mm3 (0.00-0.031); Immature Granulocyte Percent A 0.5 % (0-0.5); Lymphocytes Absolute Auto 0.49 K/mm3 (0.9-3.2); Lymphocytes Percent Auto 2.3 % (18.3-44.2); Mean Corpuscular HGB Conc 32.6 g/dl (32-36); Mean Corpuscular Hemoglobin 29.9 pg (26-34); Mean Corpuscular Volume 91.8 fl (80-100); Mean Platelet Volume 10.4 fl (7.4-10.4); Monocytes Absolute Auto 1.1 K/mm3 (0.1-0.6); Neutrophils Absolute Auto 19.7 K/mm3 (1.3-6.7); Neutrophils Percent Auto 92.1 % (45.5-73.1); Platelet Count Result 203 k/mm3 (150-375); Red Blood Count 4.51 M/mm3 (4.6-6.20); Red Cell Distribution Width 13.9 % (11.5-14.5); White Blood Count 21.4 K/mm3 (4.5-10.0)
[2020-04-24 05:37] LABS: Alanine Aminotransferase 261 U/L (4-50); Albumin Level 2.8 g/dL (3.5-5.1); Alkaline Phosphatase 68 U/L (38-126); Anion Gap 7 mmol/L (8-16); Aspartate Amino Transferase 150 U/L (17-59); Bilirubin,Total 1.2 mg/dL (0.2-1.3); Blood Urea Nitrogen 59 mg/dL (9-20); Calcium 8.3 mg/dL (8.4-10.2); Carbon Dioxide 24 mmol/L (22-30); Chloride 106 mmol/L (98-107); Estimated CRCL calculation 48 ml/min; Estimated Glomerular Filt Rate > 60; Glucose 103 mg/dL (75-110); Magnesium 2.4 mg/dL (1.6-2.3); Sodium 137 mmol/L (137-145)
[2020-04-24 07:03] LABS: Hepatitis B Surface Antigen Negative (Negative)
[2020-04-24 07:09] LABS: HAV RESULT Negative (Negative); Hepatitis B Core IgM Result Negative (Negative)
[2020-04-24 07:21] LABS: Hepatitis C Virus Antibody Negative (Negative)
[2020-04-24] MEDS: carvediloL 3.125 MG TABLET PO ×2 (09:03→20:38)
[2020-04-24] MEDS: ASPIRIN 81 MG ENTERIC TABLET PO (10:59)
[2020-04-24] MEDS: CLOPIDOGREL BISULFATE 75 MG TABLET PO (10:59)
[2020-04-24] MEDS: THIAMINE HCL 100 MG TABLET PO (10:59)
[2020-04-24] MEDS: SPIRONOLACTONE 25 MG TABLET PO (10:59)
[2020-04-24] MEDS: lisinopriL 2.5 MG TABLET PO (10:59)
--- NOTE | 2020-04-24 11:16 | PM.IMPN ---
Progress Note: A&P Assessment and Plan (1) Acute respiratory failure: Qualifiers: Respiratory failure complication: unspecified whether with hypoxia or hypercapnia Qualified Code(s): J96.00 - Acute respiratory failure, unspecified whether with hypoxia or hypercapnia Code(s): J96.00 - Acute respiratory failure, unspecified whether with hypoxia or hypercapnia Status: Acute Assessment and Plan: Secondary to acute pneumothorax, COPD exacerbation and probable congestive heart failure. Continue oxygen supplementation and wean off as tolerated. Continue chest tube for pneumothorax with general surgery recommendations. CHF symptoms appear to have resolved. (2) Primary spontaneous pneumothorax: Onset Date: ~04/19/20 Code(s): J93.11 - Primary spontaneous pneumothorax Status: Inactive Assessment and Plan: Likely related to COPD and chronic lung disease with bullous emphysema from ongoing chronic tobacco abuse. CT chest confirms moderate to severe emphysema with apical bullous disease. Chest tube is in place. Placed back on suction yesterday due to small persistent PTX. CXR today showing resolution of PTX. General Surgery managing the cheat tube (3) STEMI (ST elevation myocardial infarction): Qualifiers: Involved coronary artery: unspecified coronary artery Qualified Code(s): I21.3 - ST elevation (STEMI) myocardial infarction of unspecified site Code(s): I21.3 - ST elevation (STEMI) myocardial infarction of unspecified site Status: Acute Assessment and Plan: ST-elevation with troponin climbing to 7.66. Patient was taken for LHC which showed a long tortuous subtotally occluded LAD that was not amendable to stent so was angioplastied with increase in ILIR flow. Surgical intervention being considered. Aggressive medical management with Plavix, ASA, Coreg, Lipitor, Lisinopril and smoking cessation advised. (4) COPD exacerbation: Code(s): J44.1 - Chronic obstructive pulmonary disease with (acute) exacerbation Status: Inactive Assessment and Plan: CT chest showing moderate to severe emphysema with apical bullous disease. Wheezing resolved today. Continue nebs. WBC up to 24K felt related to the steroids. Continue Symbicort. Will stop Solu-Medrol. (5) Elevated troponin: Code(s): R77.8 - Other specified abnormalities of plasma proteins Status: Inactive Assessment and Plan: Related to the ST elevation [place] as above. (6) HTN (hypertension): Qualifiers: Hypertension type: unspecified Qualified Code(s): I10 - Essential (primary) hypertension Code(s): I10 - Essential (primary) hypertension Status: Chronic Assessment and Plan: Patient's blood pressure was reviewed on 04/23 Blood pressure remains well controlled. Will continue current medications lisinopril and Coreg now. Off clonidine and amlodipine. (7) Suspected 2019 novel coronavirus infection: Code(s): Z20.828 - Contact with and (suspected) exposure to other viral communicable diseases Status: Acute Assessment and Plan: Patient has been swabbed for COVID-19. and found to be negative. (8) Tobacco dependence: Code(s): F17.200 - Nicotine dependence, unspecified, uncomplicated Status: Chronic Assessment and Plan: Patient has been counseled on the benefits of tobacco cessation. (9) Acute systolic CHF (congestive heart failure): Code(s): I50.21 - Acute systolic (congestive) heart failure Status: Acute Assessment and Plan: Echo showing EF 20-25% with wall motion abnormalities consistent with Tako-Tsubo. Patient was diuresed gingerly. Continue Coreg, lisinopril and spironolactone as blood pressure will allow (10) ETOH abuse: Code(s): F10.10 - Alcohol abuse, uncomplicated Status: Acute Assessment and Plan: Suspected ETOH abu
--- NOTE | 2020-04-24 11:18 | PM.IMPN ---
Progress Note: A&P Assessment and Plan (1) Acute respiratory failure: Qualifiers: Respiratory failure complication: unspecified whether with hypoxia or hypercapnia Qualified Code(s): J96.00 - Acute respiratory failure, unspecified whether with hypoxia or hypercapnia Code(s): J96.00 - Acute respiratory failure, unspecified whether with hypoxia or hypercapnia Status: Acute Assessment and Plan: Secondary to acute pneumothorax, COPD exacerbation and probable congestive heart failure. CHF symptoms appear to have resolved. Weaned to room air. (2) Primary spontaneous pneumothorax: Onset Date: ~04/19/20 Code(s): J93.11 - Primary spontaneous pneumothorax Status: Inactive Assessment and Plan: Likely related to COPD and chronic lung disease with bullous emphysema from ongoing chronic tobacco abuse. CT chest confirms moderate to severe emphysema with apical bullous disease. Chest tube was placed. Patient had a small, persistent PTX. Chest tube able to be removed 04/23. CXR today showing slight left apical pneumothorax and mild subcutaneous emphysema left chest wall. General Surgery was managing the cheat tube. Will hold overnight to monitor small PTX to ensure it does not enlarge. (3) STEMI (ST elevation myocardial infarction): Qualifiers: Involved coronary artery: unspecified coronary artery Qualified Code(s): I21.3 - ST elevation (STEMI) myocardial infarction of unspecified site Code(s): I21.3 - ST elevation (STEMI) myocardial infarction of unspecified site Status: Acute Assessment and Plan: ST-elevation with troponin climbing to 7.66. Patient was taken for [facility] 04/19 which showed a long tortuous subtotally occluded LAD that was not amendable to stent so was angioplastied with increase in ILIR flow. Surgical intervention being considered. Aggressive medical management with Plavix, ASA, Coreg, Lisinopril and smoking cessation advised. Resume Lipitor when able. (4) COPD exacerbation: Code(s): J44.1 - Chronic obstructive pulmonary disease with (acute) exacerbation Status: Inactive Assessment and Plan: CT chest showing moderate to severe emphysema with apical bullous disease. Wheezing resolved. Continue nebs but narrow. WBC up to 24K felt related to the steroids. Solu-Medrol stopped. WBC better today. Continue Symbicort. (5) Elevated troponin: Code(s): R77.8 - Other specified abnormalities of plasma proteins Status: Inactive Assessment and Plan: Related to the ST elevation [place] as above. (6) HTN (hypertension): Qualifiers: Hypertension type: unspecified Qualified Code(s): I10 - Essential (primary) hypertension Code(s): I10 - Essential (primary) hypertension Status: Chronic Assessment and Plan: Patient's blood pressure was reviewed on 04/24 Blood pressure remains well controlled with episode of HoTN. Will continue current medications lisinopril and Coreg now. Off clonidine and amlodipine. (7) Suspected 2019 novel coronavirus infection: Code(s): Z20.828 - Contact with and (suspected) exposure to other viral communicable diseases Status: Acute Assessment and Plan: Patient has been swabbed for COVID-19. and found to be negative. (8) Tobacco dependence: Code(s): F17.200 - Nicotine dependence, unspecified, uncomplicated Status: Chronic Assessment and Plan: Patient has been counseled on the benefits of tobacco cessation. (9) Acute systolic CHF (congestive heart failure): Code(s): I50.21 - Acute systolic (congestive) heart failure Status: Acute Assessment and Plan: Echo showing EF 20-25% with wall motion abnormalities consistent with Tako-Tsubo. Patient was diuresed gingerly. Continue Coreg, lisinopril and spironolactone as blood pressure will allow (10) ETOH abuse: Code(s):
--- NOTE | 2020-04-24 11:53 | PCOTNOTE ---
Attempted to see patient this am, however patient sleeping upon entering and declined stating, Not right now, please.
--- NOTE | 2020-04-24 12:25 | PM.PNCARD ---
Progress Note: A&P Assessment and Plan (1) STEMI (ST elevation myocardial infarction): Qualifiers: Involved coronary artery: unspecified coronary artery Qualified Code(s): I21.3 - ST elevation (STEMI) myocardial infarction of unspecified site Code(s): I21.3 - ST elevation (STEMI) myocardial infarction of unspecified site Status: Acute Assessment and Plan: Patient may suffered an acute ID Tuesday04/19/2020. Atypical presentation, no chest pain and EKG was not typical. EKG changes could have been 2nd LV aneurysm or pericarditis, trop flat prior to the cath, trop did increase (after the procedure) Mid Left anterior descending angioplasty with resultant good flow, but the LAD could not be easily stented. Plan for POSSIBLE eventual ABRAMS to the Left anterior descending although stenting is still an option. Plan is for medical management at this time. Will reassess need to refer to cardiothoracic surgery as an outpatient. Overall physical status is not great; he is not a robust individual. Continue aspirin, Plavix, statin. Stable on medical therapy. Smoking cessation discussed. (2) Acute systolic CHF (congestive heart failure): Code(s): I50.21 - Acute systolic (congestive) heart failure Status: Acute Assessment and Plan: Has developed acute CHF, not surprising in view of the severe left ventricular dysfunction and ischemic cardiomyopathy, EF 20-25%. Hopefully most of this will be stunned myocardium since the troponin elevation was modest and he is not Q'd out extensively laterally on his EKG. Continue carvedilol, lisinopril and spironolactone as BP tolerates. DC'd amlodipine to give us room to work with his blood pressure. No need for further diuresis as he appears euvolemic. Even though blood pressure is soft he is asymptomatic. Continue meds with parameters.. (3) COPD (chronic obstructive pulmonary disease): Onset Date: Unknown Code(s): J44.9 - Chronic obstructive pulmonary disease, unspecified Status: Acute Assessment and Plan: He has severe COPD with blebs. (4) Pneumothorax on left: Onset Date: ~07/19/19 Code(s): J93.9 - Pneumothorax, unspecified Status: Acute Assessment and Plan: Spontaneous pneumo, status post chest tube management per Dr. Doss. Chest tube discontinued 04/23/2020. Chest x-ray with small pneumothorax. This is being monitored at this time. (5) Confusion: Code(s): R41.0 - Disorientation, unspecified Status: Acute Assessment and Plan: Possible alcohol withdrawal. He states that he only drinks 1 beer per day if any. According to his daughter more like 2 or 3. (6) Right upper lobe pulmonary nodule: Code(s): R91.1 - Solitary pulmonary nodule Status: Acute Assessment and Plan: Spiculated right upper lobe nodule noted on chest x-ray which will need to be evaluated at a later date Radiology recommended a [address] Discussed this w/ pt and dalila, want to make sure this is no Cancer and not growing. Additional Plan Continue PT/OT. Plan discussed Dr Shukla [id number] 04/24/2020 Subjective Date/time seen: 04/24/20 12:25 Interval history: Follow-up for: CAD, possible acute ID status post cardiac catheterization 04/19/2020 with angioplasty to the mid LAD. Date of service: Subjective: No chest discomfort, shortness of breath or lightheadedness. Chest tube discontinued yesterday. Happier without all the tubes. Review of Systems Constitutional: Constitutional: Reports fatigue and Reports weakness ENT: Denies epistaxis Cardiovascular: Cardiovascular: Denies chest pain, Denies diaphoresi
--- NOTE | 2020-04-24 13:10 | PCNFU ---
Nutrition Follow-Up Complete: Inadequate oral intake related to decreased appetite as evidenced by reported minimal intake, BMI of 16.4. Goal: Patient to consume 50% of meals/supplements or greater. Limited progress towards goal. We will continue current goal. Pt current nutrition is Heart Healthy. Nutrition recommendation: Agree Last recorded weight is 39.8 kg. Bowel Motility:+BM reported 04/24 Labs Reviewed:Mg 2.4, BUN 59, Hct 41.4.Hgb 13.5 Meds Noted:Plavix,[place],Aspirin,Coreg,Vit B-1 Additional Notes: Nutrition follow up. Spoke with patient today regarding diet. He is refusing to eat. MD notes states he refused breakfast today food taste stale . He had a lunch tray in front of him and refused. He states he is waiting for his daughter to bring him pancakes from [employer]. After some discussion he did agree upon a chocolate milk shake today. Nutritional Treat Ice Cream has been ordered BID providing an additional 300 kcals and 9 gms protein. PO intake is encouraged. Monitoring: Follow up every 3 days.
--- NOTE | 2020-04-24 16:30 | PC.NURSE ---
I was called to the patient's room to assess the patient. The patient was ambulating to the bathroom and had a large bowel movement on the floor on the way to the bathroom and started complaining of shortness of breath. The patient was found to have increasingly diminished breath sounds with coarse crackles present and was desatting to the low 80's. Oxygen was applied at 3L. Dr Doss and Dr Corcoran were called by the floor charge nurse to assess the patient. The patient was returned to bed by amanda balderas and a chest xray was ordered and quickly performed.
--- NOTE | 2020-04-24 17:03 | PM.PNGS ---
Progress Note: A&P Assessment and Plan (1) Pneumothorax on left: Onset Date: ~07/19/19 Code(s): J93.9 - Pneumothorax, unspecified Status: Acute Assessment and Plan: The chest tube was removed with help of the nurses at around 4:30 p.m. on 04/23/2020. The chest tube site was dressed with Vaseline gauze, a 3 x 3 and tape. This can be removed in 48 hours and then the patient can apply bacitracin or Neosporin ointment on it and a Band-Aid until sutures be removed which could be at my office in 1 - 2 weeks. No recurrent left pneumothorax that I can see him on recent chest x-ray this afternoon. (2) Tobacco dependence: Code(s): F17.200 - Nicotine dependence, unspecified, uncomplicated Status: Chronic Assessment and Plan: Encouraged patient to stay of cigarettes when he gets out of the hospital. (3) COPD (chronic obstructive pulmonary disease): Onset Date: Unknown Code(s): J44.9 - Chronic obstructive pulmonary disease, unspecified Status: Acute Assessment and Plan: Several days ago the patient was started on some steroids for his wheezing and excerbation of COPD. Additional Plan I did get have a discussion with the patient's daughter today. I explained the with the pneumothorax was and what blebs at the top the long were. Also discussed with her end of life issues regarding the patient's since he seems to have multiple medical problems. She expressed interest in discussing this further with him and so we will have case management bring them some literature regarding end of life decisions tomorrow and she can go over these with her dad. I asked the nurses to contact Dr. Corcoran and let him know about the recent incident described above in the history present illness. Patient may be having some rebound problems with his COPD as lungs look little bit more congested on chest x-ray and he is complaining of some increased shortness of breath compared to yesterday. Subjective Subjective Date/Time Seen: 04/24/20 16:43 The patient is seen sitting on the side of the bed. The nurses report that he had walked to the bathroom and then had a large liquid stool and something similar to a vasovagal reaction then occurred. His O2 sat dropped some as well as his blood pressure. He did not lose consciousness and did not fall. Because of his O2 drop they called for stat chest x-ray and I saw this while I was in the room. This shows at the most there is still a very small rim of pneumothorax on the left although that could be a bleb since there is fairly clear upper lung tissue on the right also. There appears to be more congestion of the lungs on this chest x-ray than the previous ones I have seen. Review of Systems Constitutional: Constitutional: Reports as per HPI and Denies headache(s) Eyes: Eyes: Denies loss of vision and Denies eye pain ENT: Reports Normal hearing present, Denies change in voice, Denies dizziness and Denies headache(s) Cardiovascular: Cardiovascular: Denies chest pain and Denies dyspnea Respiratory: Respiratory: Reports no additional respiratory complaints, Denies excessive phlegm production, Denies dyspnea and Denies wheezing Gastrointestinal: Gastrointestinal: Denies abdominal pain Musculoskeletal: Musculoskeletal: Denies back pain and Denies arthralgias Neurologic: Reports Normal hearing present, Denies dizziness, Denies headache(s), Denies loss of vision and Denies memory loss Psychiatric: Psychiatric: Denies memory loss and Denies panic attacks Endocrine: Endocrine: Reports no additional endocrine complaints Hematologic/Lymphatic: Hematologic/Lymphatic: Reports no additional hematologic/lymphatic complaints Allergic/Immunologic: Allergic/Immunologic: Denies wheezing Exam Const: General: cooperative, no acute distress, well developed, alert, awake and anxious Nutritional Appearance: well nourished, thin ( Somewhat barrel-chested)
[2020-04-24] MEDS: FUROSEMIDE INJ 40 MG/4 ML VIAL 20 MG IV PUSH (18:00)
[2020-04-24] MEDS: ENOXAPARIN 40 MG/0.4 ML SYRINGE SUB-Q (20:39)
[2020-04-25] VITALS (14 sets, daily range): BP systolic 89–104; BP diastolic 54–83; PULSE 67–92; RESP 16–20; TEMP 36.2–37; O2SAT 94–99
[2020-04-25 05:00] LABS: Hematocrit 39.5 % (42.0-52.0); Hemoglobin 13.2 g/dL (14.0-18.0); Mean Corpuscular HGB Conc 33.4 g/dl (32-36); Mean Corpuscular Hemoglobin 30.3 pg (26-34); Mean Corpuscular Volume 90.6 fl (80-100); Mean Platelet Volume 10.5 fl (7.4-10.4); Platelet Count Result 196 k/mm3 (150-375); Red Blood Count 4.36 M/mm3 (4.6-6.20); Red Cell Distribution Width 14.1 % (11.5-14.5); White Blood Count 17.5 K/mm3 (4.5-10.0)
[2020-04-25 05:10] LABS: Alanine Aminotransferase 181 U/L (4-50); Albumin Level 2.8 g/dL (3.5-5.1); Alkaline Phosphatase 72 U/L (38-126); Anion Gap 9 mmol/L (8-16); Aspartate Amino Transferase 77 U/L (17-59); Bilirubin,Total 1.2 mg/dL (0.2-1.3); Blood Urea Nitrogen 64 mg/dL (9-20); Calcium 8.1 mg/dL (8.4-10.2); Carbon Dioxide 22 mmol/L (22-30); Chloride 105 mmol/L (98-107); Estimated CRCL calculation 27 ml/min; Estimated Glomerular Filt Rate 55; Glucose 101 mg/dL (75-110); Potassium 3.5 mmol/L (3.4-5.0); Sodium 136 mmol/L (137-145)
[2020-04-25] MEDS: ALBUTEROL SULFATE NEB 2.5 MG/0.5 ML INH INHALATION (08:38)
[2020-04-25] MEDS: CLOPIDOGREL BISULFATE 75 MG TABLET PO (09:28)
[2020-04-25] MEDS: THIAMINE HCL 100 MG TABLET PO (09:28)
[2020-04-25] MEDS: lisinopriL 2.5 MG TABLET PO (09:28)
[2020-04-25] MEDS: ASPIRIN 81 MG ENTERIC TABLET PO (09:28)
[2020-04-25] MEDS: SPIRONOLACTONE 25 MG TABLET PO (09:29)
[2020-04-25] MEDS: carvediloL 3.125 MG TABLET PO (09:29)
[2020-04-25] MEDS: HYDROcodone/acetaminophen (*CRX) 5-325 MG TABLET 1 TAB PO (09:30)
--- NOTE | 2020-04-25 09:44 | PCPTNOTE ---
Attempted therapy session at 9:35, Pt requested therapy to come back around 11:00 due to stomach being upset. Will attempt again.
--- NOTE | 2020-04-25 11:47 | PCDIET ---
Nutrition Follow-Up Complete: Nutrition Diagnosis: Inadequate oral intake related to decreased appetite as evidenced by reported minimal intake, BMI of 16.4. Nutrition Goal: Patient to consume 50% of meals/supplements or greater. Goal not met. Patient with minimal intake but reports taking some of shake sent yesterday. Requesting strawberry flavor. Recommend strawberry Ensure Enlive (350kcal, 20g protein) mixed with vanilla Thrive (300kcal, 9g protein) twice daily. Recommend liberalized diet: Regular. Noted plan for end of life discussion. If aggressive nutritional therapy is desired, recommend feeding tube placement and initiation of Jevity 1.2 at 20mL/hr. Would need to advance cautiously, monitoring electrolyes, due to risk of refeeding syndrome. Last recorded weight is 39.7 kg which is stable with last review. Bowel Motility: BM x 4 today. Would consider addition of anti-diarrheal medication, if medically appropriate. Labs Reviewed: Hgb (13.2), Hct (39.5), BUN (64), Na (136), Alb (2.8), Adi Ca (9.06) Meds Noted: [place], Lisinopril, Aldactone, Albuterol, Lipitor, Symbicort, Coreg, Vitamin B1 Additional Notes: Left chest and right groin puncture sites. No documented pressure ulcers. Will continue to monitor with same goal. Nutrition Monitoring and Evaluation: Follow up every 3 days.
--- NOTE | 2020-04-25 14:24 | PCRCNOTE ---
HOME O2 EVAL ATTEMPTED, ROOM AIR RESTING 96%. PT REFUSES WALK, DOESNT WANT TO HAVE ANOTHER ACCIDENT LIKE YESTERDAY. EXPLAINED THE IMPORTANCE OF CHECKING SATS WITH EXERTION. RELAYED THIS TO NURSE.
--- NOTE | 2020-04-25 15:21 | PM.DS ---
DS: Admitting Diagnosis Admitting Diagnosis Admitting Diagnosis: acute respiratory failure, PMX, Elev Trop DS: Discharge Diagnosis Discharge Diagnosis (1) Acute respiratory failure: Qualifiers: Respiratory failure complication: unspecified whether with hypoxia or hypercapnia Qualified Code(s): J96.00 - Acute respiratory failure, unspecified whether with hypoxia or hypercapnia Code(s): J96.00 - Acute respiratory failure, unspecified whether with hypoxia or hypercapnia Status: Acute Assessment and Plan: Secondary to acute pneumothorax, COPD exacerbation and probable congestive heart failure. Symptoms have resolved. Weaned to room air. We attempted a home O2 evaluation and patietn was 96% on room air but he refused to walk for the therapist. (2) Primary spontaneous pneumothorax: Onset Date: ~04/19/20 Code(s): J93.11 - Primary spontaneous pneumothorax Status: Inactive Assessment and Plan: Likely related to COPD and chronic lung disease with bullous emphysema from ongoing chronic tobacco abuse. CT chest confirms moderate to severe emphysema with apical bullous disease. Chest tube was placed. Patient had a small, persistent PTX. Chest tube able to be removed 04/23. CXR showing slight left apical pneumothorax and mild subcutaneous emphysema left chest wall. General Surgery was managing the chest tube. (3) STEMI (ST elevation myocardial infarction): Qualifiers: Involved coronary artery: unspecified coronary artery Qualified Code(s): I21.3 - ST elevation (STEMI) myocardial infarction of unspecified site Code(s): I21.3 - ST elevation (STEMI) myocardial infarction of unspecified site Status: Acute Assessment and Plan: ST-elevation with troponin climbing to 7.66. Patient was taken for [facility] 04/19 which showed a long tortuous subtotally occluded LAD that was not amendable to stent so was angioplastied with increase in ILIR flow. Surgical intervention being considered. Aggressive medical management with Plavix, ASA, Coreg, Lisinopril and smoking cessation advised. Resume Lipitor when able. (4) COPD exacerbation: Code(s): J44.1 - Chronic obstructive pulmonary disease with (acute) exacerbation Status: Inactive Assessment and Plan: CT chest showing moderate to severe emphysema with apical bullous disease. Wheezing resolved. WBC up to 24K felt related to the steroids. Treated with Solu-Medrol but ultimately stopped. WBC trended down off steroids. We continued Symbicort. (5) Elevated troponin: Code(s): R77.8 - Other specified abnormalities of plasma proteins Status: Inactive Assessment and Plan: Related to the ST elevation [place] as above. (6) HTN (hypertension): Qualifiers: Hypertension type: unspecified Qualified Code(s): I10 - Essential (primary) hypertension Code(s): I10 - Essential (primary) hypertension Status: Chronic Assessment and Plan: Patient's blood pressure was monitored closely Blood pressure remains well controlled. Will continue current medications lisinopril and Coreg now. Off clonidine and amlodipine. (7) Suspected 2019 novel coronavirus infection: Code(s): Z20.828 - Contact with and (suspected) exposure to other viral communicable diseases Status: Acute Assessment and Plan: Patient has been swabbed for COVID-19. and found to be negative. (8) Tobacco dependence: Code(s): F17.200 - Nicotine dependence, unspecified, uncomplicated Status: Chronic Assessment and Plan: Patient has been counseled on the benefits of tobacco cessation. (9) Acute systolic CHF (congestive heart failure): Code(s): I50.21 - Acute systolic (congestive) heart failure Status: Acute Assessment and Plan: Echo showing EF 20-25% with wall motion abnormalities consistent with Tako-Tsubo. Patient was diures
--- NOTE | 2020-04-25 15:39 | PM.PNCARD ---
Progress Note: A&P Assessment and Plan (1) STEMI (ST elevation myocardial infarction): Qualifiers: Involved coronary artery: unspecified coronary artery Qualified Code(s): I21.3 - ST elevation (STEMI) myocardial infarction of unspecified site Code(s): I21.3 - ST elevation (STEMI) myocardial infarction of unspecified site Status: Acute Assessment and Plan: Patient may suffered an acute [place] Tuesday04/19/2020. Atypical presentation, no chest pain and EKG was not typical. EKG changes could have been 2nd LV aneurysm or pericarditis, trop flat prior to the cath, trop did increase (after the procedure) Mid Left anterior descending angioplasty with resultant good flow, but the LAD could not be easily stented. Plan for POSSIBLE eventual ABRAMS to the Left anterior descending although stenting is still an option. Plan is for medical management at this time. Will reassess need to refer to cardiothoracic surgery as an outpatient. At this time he will be discharged home. His family would like him to have hospice but at this time he is not ready. Overall physical status is not great; he is not a robust individual. Continue aspirin, Plavix, statin. Stable on medical therapy. Smoking cessation again discussed. (2) Acute systolic CHF (congestive heart failure): Code(s): I50.21 - Acute systolic (congestive) heart failure Status: Acute Assessment and Plan: Has developed acute CHF, not surprising in view of the severe left ventricular dysfunction and ischemic cardiomyopathy, EF 20-25%. Hopefully most of this will be stunned myocardium since the troponin elevation was modest and he is not Q'd out extensively laterally on his EKG. Continue carvedilol, lisinopril and spironolactone as BP tolerates. DC'd amlodipine to give us room to work with his blood pressure. No need for further diuresis as he appears euvolemic. Even though blood pressure is soft he is asymptomatic. Continue medications as above. (3) COPD (chronic obstructive pulmonary disease): Onset Date: Unknown Code(s): J44.9 - Chronic obstructive pulmonary disease, unspecified Status: Acute Assessment and Plan: He has severe COPD with blebs. Discharging on 2 L of oxygen. Refuse to ambulate for home O2 eval (4) Pneumothorax on left: Onset Date: ~07/19/19 Code(s): J93.9 - Pneumothorax, unspecified Status: Acute Assessment and Plan: Spontaneous pneumo, status post chest tube management per Dr. Doss. Chest tube discontinued 04/23/2020. Small pneumothorax post chest tube. Management per Dr. Doss. (5) Confusion: Code(s): R41.0 - Disorientation, unspecified Status: Acute Assessment and Plan: Possible alcohol withdrawal. He states that he only drinks 1 beer per day if any. According to his daughter more like 2 or 3. (6) Right upper lobe pulmonary nodule: Code(s): R91.1 - Solitary pulmonary nodule Status: Acute Assessment and Plan: Spiculated right upper lobe nodule noted on chest x-ray which will need to be evaluated at a later date Radiology recommended a [address] Additional Plan OK to discharge from cardiac standpoint. See discharge instructions for follow-up. Plan discussed with Dr. Bennett [id number] 04/25/2020 Subjective Date/time seen: 04/25/20 15:39 Interval history: Follow-up for: CAD, possible acute [place] status post cardiac catheterization 04/19/2020 with angioplasty to the mid LAD. Date of service: 04/25/2020 Subjective: Denied chest discomfort, shortness of breath, lightheadedness or palpitations. Still not eating very well. ?All the food tastes stale . Review of Sy
--- NOTE | 2020-04-25 16:04 | PM.PNGS ---
Progress Note: A&P Assessment and Plan (1) Pneumothorax on left: Onset Date: ~07/19/19 Code(s): J93.9 - Pneumothorax, unspecified Status: Acute Assessment and Plan: The chest tube was removed with help of the nurses at around 4:30 p.m. on 04/23/2020. There is a new dressing on the old CT site. This can be removed in 48 hours and then the patient can apply bacitracin or Neosporin ointment on it and a Band-Aid until sutures be removed which could be at my office in 1 - 2 weeks. Today's chest x-ray showed a small rim of left pneumothorax but the chest tube has been out for 2 days so I doubt if this is significant. (2) Tobacco dependence: Code(s): F17.200 - Nicotine dependence, unspecified, uncomplicated Status: Chronic Assessment and Plan: Encouraged patient to stay of cigarettes when he gets out of the hospital. (3) COPD (chronic obstructive pulmonary disease): Onset Date: Unknown Code(s): J44.9 - Chronic obstructive pulmonary disease, unspecified Status: Acute Assessment and Plan: As per hospitalist. Additional Plan I did get have a discussion with the patient's daughter yesterday. I explained the with the pneumothorax was and what blebs at the top the long were. Also discussed with her end of life issues regarding the patient's since he seems to have multiple medical problems. She expressed interest in discussing this further with him and so we will have case management bring them some literature regarding end of life decisions tomorrow and she can go over these with her dad. Subjective Subjective Date/Time Seen: 04/25/20 13:14 Patient lying in bed when I entered the room. States he is not short of breath. Does not have much pain at the old chest tube site. Review of Systems Constitutional: Constitutional: Reports as per HPI and Denies headache(s) Eyes: Eyes: Denies loss of vision and Denies eye pain ENT: Reports Normal hearing present, Denies change in voice, Denies dizziness and Denies headache(s) Cardiovascular: Cardiovascular: Denies chest pain and Denies dyspnea Respiratory: Respiratory: Reports no additional respiratory complaints, Denies excessive phlegm production, Denies dyspnea and Denies wheezing Gastrointestinal: Gastrointestinal: Denies abdominal pain Musculoskeletal: Musculoskeletal: Denies back pain and Denies arthralgias Neurologic: Reports Normal hearing present, Denies dizziness, Denies headache(s), Denies loss of vision and Denies memory loss Psychiatric: Psychiatric: Denies memory loss and Denies panic attacks Endocrine: Endocrine: Reports no additional endocrine complaints Hematologic/Lymphatic: Hematologic/Lymphatic: Reports no additional hematologic/lymphatic complaints Allergic/Immunologic: Allergic/Immunologic: Denies wheezing Exam Const: General: cooperative, no acute distress, well developed, alert, awake and anxious Nutritional Appearance: well nourished, thin ( Somewhat barrel-chested) and underweight Limitations: no limitations and altered mental status Other: HENMT: Head: normal to inspection, normocephalic and atraumatic Ears: hearing grossly normal bilaterally General nose exam: Normal external nose present Face and sinus: normal facial exam Mouth: Yes Normal oral and palatal mucosa present, Yes tongue normal and Yes moist mucous membranes Eyes: General: appearance normal, both eyes and all related structures Pupils: Equal, round and reactive pupils present EOM: EOMs intact bilaterally Neck: Neck: normal visual inspection, no lymphadenopathy, trachea midline and supple Lymphatic: no lymphadenopathy noted Chest: Chest palpation & inspection: normal inspection of the chest Other: Chest tube has been removed the dressing now 2-day-old was replaced today. I reapplied a Vaseline gauze 2 x 2 and some tape completely sealing the wound and asked the patient to removed into days and begin using
== END 2020-04-25 16:54 | disposition home or self-care (01) | DRG 250 ==
LOC: ANHICU 04-22 10:51 → ANHIMU 04-24 17:07 → ANHICU 04-28 14:32 → ANHIMU 04-28 14:32
PROVIDERS: Internal Medicine; Internal Medicine Critical Care Medicine; Internal Medicine Interventional Cardiology; Surgery; Admitting Provider Family Medicine; PCP Family Medicine; Visit Provider Internal Medicine
PROC: 4A023N7 Measurement of Cardiac Sampling and Pressure, Left Heart, Percutaneous Approach (ICD-10-PCS; CPT 93452; principal; 2020-04-19 06:00)
PROC: 02703ZZ Dilation of Coronary Artery, One Artery, Percutaneous Approach (ICD-10-PCS; 2020-04-19 06:00)
PROC: 02703ZZ Dilation of Coronary Artery, One Artery, Percutaneous Approach (ICD-10-PCS; CPT 92920; 2020-04-19 06:00)
DX: I21.09 ST elevation (STEMI) myocardial infarction involving other coronary artery of anterior wall (principal); J96.00 Acute respiratory failure, unspecified whether with hypoxia or hypercapnia; I50.21 Acute systolic (congestive) heart failure; J93.11 Primary spontaneous pneumothorax; Z20.828 Contact with and (suspected) exposure to other viral communicable diseases; J43.9 Emphysema, unspecified; F10.10 Alcohol abuse, uncomplicated; I11.0 Hypertensive heart disease with heart failure; R91.1 Solitary pulmonary nodule; F17.210 Nicotine dependence, cigarettes, uncomplicated; I25.5 Ischemic cardiomyopathy; R79.89 Other specified abnormal findings of blood chemistry
CPT/HCPCS: 36415; 36600; 71045; 76705; 80048; 80053; 80061; 80074; 80076; 82375; 82805; 83050; 83735; 84100; 84439; 84443; 84480; 84484; 85025; 85027; 85610; 85730; 92610; 92920; 93005; 93306; 93458; 94618; 94640; 97110; 97161; 97165; A9270; C1725; C1760; C1769; C1887; C1894; G0269; J1644; J1650; J1940; J2060; J2250; J2920; J2930; J3010; J3411; J7030; J7040